=== PATIENT | female | born 1990 | race Caucasian/White ===

== ENCOUNTER 2016-08-27 11:47 | Inpatient (IN) | payer MEDICAID ==
[~2016-08-27] VITALS: Ht 152.4 cm; Wt 76.7 kg
[2016-08-27] VITALS (24 sets, daily range): BP systolic 119–168; BP diastolic 65–93
[~2016-08-27 11:47] MED LIST: ACET-789 PO; ACHD5005 PO; ALBU17AE3; ALBU17AE3 IH; ALBU8.5H2 IH; ALBU8.5H4 IH; ALBUTEROL INHALER INH; AMPICILLIN 2000 MG INJECTION (IM/IV) ONE; BCP; CEFP500T4 PO; CEPH-507 PO; CLC500CT PO; D5 LR IV SOLUTION 1,000 ML IV ONE; DCS100C PO; DESV50TA PO; HYDR-3812 PO; HYDR-757 PO; HYDR1TAB PO; IBP600T1 PO; IBUP-1773 PO; LIDOCAINE/EPI 1%-1:200,000 (XYLOCAINE) 30 ML VIAL ONE; METH4TAB PO; METR500T PO; MINERAL OIL CONCENTRATE 99.9% 15 ML UDC ONE; MULT-241 PO; NAPR-243 PO; NITR-65 PO; NITR100C3 PO; NS (IVPB) 50 ML ONE; OMEP20CA6; ONDAN4ODT PO; OXYTOCIN/NORMAL SALINE 500 ML IV ONE; PEDI1TAB36 PO; PRD20T PO; PRILOSEC; QTP100T PO; TRAM50TA2 PO; TRM50T PO; [UNRECOGNIZED DRUG - OTHER] PO; [UNRECOGNIZED DRUG - REMARK]; [UNRECOGNIZED DRUG - REMARK]
[2016-08-27] MEDS ORDERED: D5 LR IV SOLUTION 1,000 ML IV SCH (11:53)
[2016-08-27] MEDS ORDERED: MINERAL OIL CONCENTRATE 99.9% 15 ML UDC TOP PRN (12:00)
[2016-08-27] MEDS ORDERED: ceFAZolin 2 GM/50 ML NS 50 ML IV ONE (12:00)
[2016-08-27 12:15] LABS: BASOPHILS % (AUTO) 0 % (0-10); EOSINOPHILS # (AUTO) 0.1 10^3/uL (0.0-0.3); EOSINOPHILS % (AUTO) 1 % (0-10); LYMPHOCYTES % (AUTO) 18 % (12-44); MEAN CORPUSCULAR HEMOGLOBIN 29 PG (25-34); MEAN CORPUSCULAR HGB CONC 33 G/DL (32-36); MEAN CORPUSCULAR VOLUME 89 FL (80-99); MEAN PLATELET VOLUME 11.5 FL (7.4-10.4); MONOCYTES % (AUTO) 6 % (0-12); NEUTROPHILS # (AUTO) 12.2 X 10^3 (1.8-7.8); NEUTROPHILS % (AUTO) 75 % (42-75); PLATELET COUNT 252 10^3/uL (130-400); RED BLOOD COUNT 4.34 10^6/uL (4.35-5.85); RED CELL DISTRIBUTION WIDTH 13.5 % (10.0-14.5); WHITE BLOOD COUNT 16.3 10^3/uL (4.3-11.0)
[2016-08-27 12:24] LABS: BILIRUBIN,URINE NEGATIVE (NEGATIVE); KETONES,URINE 2+ (NEGATIVE); LEUKOCYTE ESTERASE ,URINE 1+ (NEGATIVE); NITRITE,URINE NEGATIVE (NEGATIVE); PH,URINE 7 (5-9); PROTEIN,URINE NEGATIVE (NEGATIVE); UROBILINOGEN,URINE NORMAL (NORMAL)
[2016-08-27 12:48] LABS: WBC,URINE 0-2 /HPF
[2016-08-27 13:03] LABS: BAND NEUTROPHILS 1 %; BASOPHILS % (MANUAL) 0 %; EOSINOPHILS % (MANUAL) 1 %; LYMPHOCYTES % (MANUAL) 24 %; NEUTROPHILS % (MANUAL) 71 %; REACTIVE LYMPHOCYTES 1 %
[2016-08-27] MEDS ORDERED: CATHETER FLUSH 10 ML SYR IV SCH ×2 (14:00→22:00)
[2016-08-27] MEDS ORDERED: SUFENTA 0.6MCG/ML BUPIVA 0.125 100 ML ONE (14:31)
[2016-08-27] MEDS ORDERED: BUPIVACAINE 0.25% 30 ML (SENSORCAINE) VIAL ONE (15:02)
[2016-08-27] MEDS ORDERED: fentaNYL INJECTION 100 MCG/2 ML AMP ONE (15:02)
[2016-08-27] MEDS ORDERED: LIDOCAINE PF 2% 10 ML (XYLOCAINE) AMP ONE (15:02)
[2016-08-27] MEDS ORDERED: BUPIVACAINE 0.25% 30 ML (SENSORCAINE) VIAL INJ ONE (16:30)
[2016-08-27] MEDS ORDERED: LIDOCAINE PF 2% 10 ML (XYLOCAINE) AMP INJ ONE (16:30)
[2016-08-27] MEDS ORDERED: LACTATED RINGERS 1,000 ML IV ONE (16:30)
[2016-08-27] MEDS ORDERED: fentaNYL INJECTION 100 MCG/2 ML AMP INJ ONE (16:30)
[2016-08-27] MEDS ORDERED: NALOXONE 0.4 MG/ML 1 ML (NARCAN) VIAL IV PRN (16:30)
[2016-08-27] MEDS ORDERED: diphenhydrAMINE 50 MG/ML INJ (BENADRYL) IV PRN (16:30)
[2016-08-27] MEDS ORDERED: EPIDURAL (SUFENTA 0.6MCG/ML BUPIVA 0.125%) 100 ML BAG EPI SCH (16:30)
[2016-08-27] MEDS ORDERED: ONDANSETRON 4 MG/2 ML (SDV) Z0FRAN IV PRN (16:30)
[2016-08-27] MEDS ORDERED: CATHETER FLUSH 10 ML SYR IV PRN (16:30)
[2016-08-27] MEDS ORDERED: ceFAZolin INJECTION 1,000 MG in NS (IVPB) 50 ML IV SCH (18:00)
[2016-08-27] MEDS ORDERED: OXYTOCIN/NORMAL SALINE 500 ML IV SCH (19:04)
--- NOTE | 2016-08-27 19:10 | OB Labor & Delivery Record ---
Vag Delivery Note Vag Delivery Note Date of Delivery: 08/27/16 Preoperative Diagnosis: Jesi Navarrete is a 26 /Para 9 / 4, Gestational Age 38 in active labor, GBS unknown Postoperative Diagnosis: Same Surgeon: AC GUTIERREZ Anesthesia: epidural Delivery Type: vaginal Findings: Viable male , apgars 9/9, weight 6#13oz Lacerations: Intact placenta with 3 vessel cord. No nuchal cord, body cord or shoulder dystocia Estimated Blood Loss: 150 ml Complications: None Condition: Stable Description of Procedure: The patient is a 26 /Para 9 / 4,Gestational Age 38 in active labor, GBS unknown. She was admitted and informed consent was obtained. Her labor course was remarkable for GBS unknown. PCN allergic. Received Ancef x 2 doses. AROM at 1715 (7 cm). She progressed to complete dilatation and began to push. She was then set up for delivery. The infant's head was delivered atraumatically in the RAMY position. The shoulders and remainder of the 's body were then delivered without difficulty. Upon delivery, the head was held below the level of the perineum and the mouth and nares were bulb suctioned. The cord was doubly clamped and cut and the infant was handed off to the pediatric staff. An intact placenta with 3-vessel cord delivered via Karissa and there was found to be minimal bleeding.~ Vigorous fundal massage was performed and the fundus was found to be firm. IV oxytocin was given. Examination of the vagina and perineum revealed no lacerations. Following the delivery, sponge, instrument and needle counts were correct x 2. Mom and baby were both in stable condition in the labor suite. Vitals - Labs Vital Signs - I&O Vital Signs Date Time Temp Pulse Resp B/P (MAP) Pulse Ox O2 Delivery O2 Flow Rate FiO2 08/27/16 18:00 115 18 98 Room Air 08/27/16 17:45 110 18 98 Room Air 08/27/16 17:30 115 18 98 Room Air 08/27/16 17:15 112 18 168/87 98 Room Air 08/27/16 17:00 111 18 163/91 98 Room Air 08/27/16 16:45 103 18 133/73 98 Room Air 08/27/16 16:30 104 18 131/90 99 Room Air 08/27/16 16:20 105 18 157/93 98 Room Air 08/27/16 16:15 108 18 135/77 98 Room Air 08/27/16 15:55 99 18 139/86 99 Room Air 08/27/16 15:50 100 18 139/86 98 Room Air 08/27/16 15:45 105 18 136/79 97 Room Air 08/27/16 15:40 103 18 151/84 98 Room Air 08/27/16 15:35 96 18 136/65 98 Room Air 08/27/16 15:30 102 18 147/72 Room Air 08/27/16 15:00 96 18 139/85 Room Air 08/27/16 14:30 94 18 128/78 Room Air 08/27/16 14:00 98 18 119/70 Room Air 08/27/16 13:30 93 18 137/75 Room Air 08/27/16 13:00 93 18 128/82 98 Room Air 08/27/16 12:30 18 Room Air 08/27/16 12:00 102 18 151/77 98 Room Air 08/27/16 12:00 93 18 130/65 98 Room Air Labs Laboratory Tests 08/27/16 11:50: White Blood Count 16.3H, Red Blood Count 4.34L, Hemoglobin 12.7, Hematocrit 39, Mean Corpuscular Volume 89, Mean Corpuscular Hemoglobin 29, Mean Corpuscular Hemoglobin Concent 33, Red Cell Distribution Width 13.5, Platelet Count 252, Mean Platelet Volume 11.5H, Neutrophils (%) (Auto) 75, Lymphocytes (%) (Auto) 18 , Monocytes (%) (Auto) 6, Eosinophils (%) (Auto) 1, Basophils (%) (Auto) 0, Neutrophils # (Auto) 12.2H, Lymphocytes # (Auto) 3.0, Monocytes # (Auto) 1.0, Eosinophils # (Auto) 0.1, Basophils # (Auto) 0.0, Neutrophils % (Manual) 71, Lymphocytes % (Manual) 24, Monocytes % (Manual) 2, Eosinophils % (Manual) 1, Basophils % (Manual) 0, Band Neutrophils 1, Reactive Lymphocytes 1, Blood Morphology Comment NORMAL, Urine Color YELLOW, Urine Clarity CLEAR, Urine pH 7, Urine Specific [place] 1.010L, Urine Protein NEGATIVE, Urine Glucose (UA) NEGATIVE, Urine Ketones 2+H, Urine Nitrite NEGATIVE, Urine Bilirubin NEGATIVE, Urine Urobilinogen NORMAL, Urine Leukocyte Esterase 1+H, Urine RBC (Auto) 1+H, Urine RBC RARE, Urine WBC 0-2, Urine Crystals PRESENTH, Urine Amorphous Sediment FEW MAXX PHOSPHATEH, Urine Bacteria TRACE, Urine Casts NONE, Urine Mucus MODERATEH, Urine Culture Indicated NO AC GUTIERREZ DO Aug 27, 2016 19:10
[2016-08-27] MEDS ORDERED: IBUP-1773 PO (19:11)
--- NOTE | 2016-08-27 19:12 | Discharge Inst-Women's Service ---
Discharge Inst-Women's Serv Depart Medication/Instructions New, Converted or Re-Newed RX: Transmitted to Pharmacy Final Diagnosis Labor GBS unknown Vaginal delivery Epidural Consults/Follow Up Additional Follow Up: Yes (6 weeks for pp exam) Activity Activity: Activity as Tolerated Driving Instructions: You May Drive NO SMOKING: NO SMOKING Nothing Inside Vagina: No Douching, No [place], No Tampons Diet Discharge Diet: No Restrictions Symptoms to Report to : Bleeding Excessive, Pain Increased, Fever Over 101 Degrees F, Vaginal Bleeding Increase, Vaginal Discharge Foul For Any Problems or Questions: Contact Your Physician Skin/Wound Care Bathing Instructions: AC Parson DO Aug 27, 2016 19:12
[2016-08-27] MEDS ORDERED: MEASLES,MUMPS,RUBELLA 1 EA INJ SQ ONE (19:15)
[2016-08-27] MEDS ORDERED: TETANUS,DIPTH,PERTUSS P/F (BOOSTRIX) 0.5 ML VIAL IM ONE (19:15)
[2016-08-27] MEDS ORDERED: BENZOCAINE/MENTHOL (DERMOPLAST) 56 ML CAN TP PRN (19:15)
[2016-08-27] MEDS ORDERED: WITCH HAZEL(TUCKS) 40 EA JAR TOP PRN (19:15)
[2016-08-27] MEDS: IBUPROFEN 600 MG (MOTRIN) TAB PO SCH (20:14)
[2016-08-27] MEDS: DOCUSATE SODIUM 100 MG (COLACE) CAP PO SCH (21:00)
[2016-08-28 00:07] VITALS: BP 147/97
[2016-08-28] MEDS: IBUPROFEN 600 MG (MOTRIN) TAB PO SCH ×4 (02:13→23:24)
[2016-08-28 04:00] VITALS: BP 126/81
[2016-08-28 06:20] LABS: BASOPHILS % (AUTO) 0 % (0-10); EOSINOPHILS # (AUTO) 0.2 10^3/uL (0.0-0.3); EOSINOPHILS % (AUTO) 1 % (0-10); LYMPHOCYTES # (AUTO) 3.7 X 10^3 (1.0-4.0); LYMPHOCYTES % (AUTO) 22 % (12-44); MEAN CORPUSCULAR HEMOGLOBIN 30 PG (25-34); MEAN CORPUSCULAR HGB CONC 33 G/DL (32-36); MEAN CORPUSCULAR VOLUME 90 FL (80-99); MEAN PLATELET VOLUME 11.2 FL (7.4-10.4); MONOCYTES # (AUTO) 1.2 X 10^3 (0.0-1.0); MONOCYTES % (AUTO) 7 % (0-12); NEUTROPHILS # (AUTO) 11.3 X 10^3 (1.8-7.8); NEUTROPHILS % (AUTO) 69 % (42-75); PLATELET COUNT 209 10^3/uL (130-400); RED BLOOD COUNT 3.61 10^6/uL (4.35-5.85); RED CELL DISTRIBUTION WIDTH 13.4 % (10.0-14.5); WHITE BLOOD COUNT 16.3 10^3/uL (4.3-11.0)
[2016-08-28] MEDS: PRENATAL VITAMIN 1 EA TAB PO SCH (06:23)
[2016-08-28] MEDS: FERROUS SULF 325 MG (IRON) TAB PO SCH ×2 (06:23→20:20)
--- NOTE | 2016-08-28 07:38 | Postpartum Progress Note ---
Note Note Day # 1 s/p Subjective: Patient is without complaints. Ambulating, voiding. Tolerating a regular diet without nausea or vomiting. Normal lochia. Pain is well controlled with oral antiinflammatories. Objective: Laboratory Tests Test 08/27/16 11:50 08/28/16 06:10 Range/Units White Blood Count 16.3 H 16.3 H 4.3-11.0 10^3/uL Red Blood Count 4.34 L 3.61 L 4.35-5.85 10^6/uL Hemoglobin 12.7 10.7 L 11.5-16.0 G/DL Hematocrit 39 32 L 35-52 % Mean Corpuscular Volume 89 90 80-99 FL Mean Corpuscular Hemoglobin 29 30 25-34 PG Mean Corpuscular Hemoglobin Concent 33 33 32-36 G/DL Red Cell Distribution Width 13.5 13.4 10.0-14.5 % Platelet Count 252 209 130-400 10^3/uL Mean Platelet Volume 11.5 H 11.2 H 7.4-10.4 FL Neutrophils (%) (Auto) 75 69 42-75 % Lymphocytes (%) (Auto) 18 22 12-44 % Monocytes (%) (Auto) 6 7 0-12 % Eosinophils (%) (Auto) 1 1 0-10 % Basophils (%) (Auto) 0 0 0-10 % Neutrophils # (Auto) 12.2 H 11.3 H 1.8-7.8 X 10^3 Lymphocytes # (Auto) 3.0 3.7 1.0-4.0 X 10^3 Monocytes # (Auto) 1.0 1.2 H 0.0-1.0 X 10^3 Eosinophils # (Auto) 0.1 0.2 0.0-0.3 10^3/uL Basophils # (Auto) 0.0 0.0 0.0-0.1 10^3/uL Neutrophils % (Manual) 71 % Lymphocytes % (Manual) 24 % Monocytes % (Manual) 2 % Eosinophils % (Manual) 1 % Basophils % (Manual) 0 % Band Neutrophils 1 % Reactive Lymphocytes 1 % Blood Morphology Comment NORMAL Urine Color YELLOW Urine Clarity CLEAR Urine pH 7 5-9 Urine Specific [place] 1.010 L 1.016-1.022 Urine Protein NEGATIVE NEGATIVE Urine Glucose (UA) NEGATIVE NEGATIVE Urine Ketones 2+ H NEGATIVE Urine Nitrite NEGATIVE NEGATIVE Urine Bilirubin NEGATIVE NEGATIVE Urine Urobilinogen NORMAL NORMAL MG/DL Urine Leukocyte Esterase 1+ H NEGATIVE Urine RBC (Auto) 1+ H NEGATIVE Urine RBC RARE /HPF Urine WBC 0-2 /HPF Urine Crystals PRESENT H /LPF Urine Amorphous Sediment FEW MAXX PHOSPHATE H /LPF Urine Bacteria TRACE /HPF Urine Casts NONE /LPF Urine Mucus MODERATE H /LPF Urine Culture Indicated NO Vital Sign - Last 12Hours 08/27/16 08/27/16 08/27/16 08/27/16 20:07 20:14 20:23 21:02 Temp 97.0 Pulse 105 93 109 88 Resp 18 18 18 18 B/P (MAP) 161/85 150/69 130/77 125/80 Pulse Ox 96 O2 Delivery Room Air Room Air Room Air Room Air 08/28/16 08/28/16 00:07 04:00 Temp 98.6 97.0 Pulse 95 76 Resp 17 16 B/P (MAP) 147/97 126/81 Pulse Ox 98 99 O2 Delivery Room Air Room Air Intake and Output 08/28/16 00:00 Intake Total 1550 ml Balance 1550 ml Physical Exam: General - Alert and oriented, no apparent distress Abdomen - Soft, appropriately tender to palpation, non-distended, fundus firm at umbilicus Extremities - no edema, negative Jeremie's bilaterally Assessment: 1. post- day # , status post spontaneous vaginal delivery. Recovering well, hemodynamically stable Plan: Routine care. Encourage breast feeding. Encourage ambulation. Ferrous sulfate supplementation. Plan for discharge tomorrow Vitals - Labs Vital Signs - I&O Vital Signs Date Time Temp Pulse Resp B/P (MAP) Pulse Ox O2 Delivery O2 Flow Rate FiO2 08/28/16 04:00 97.0 76 16 126/81 99 Room Air 08/28/16 00:07 98.6 95 17 147/97 98 Room Air 08/27/16 21:02 97.0 88 18 125/80 96 Room Air 08/27/16 20:23 109 18 130/77 Room Air 08/27/16 20:14 93 18 150/69 Room Air 08/27/16 20:07 105 18 161/85 Room Air 08/27/16 19:24 87 18 133/80 Room Air 08/27/16 19:05 93 18 145/82 Room Air 08/27/16 18:45 123 18 99 Room Air 08/27/16 18:30 124 18 98 Room Air 08/27/16 18:15 131 18 98 Room Air 08/27/16 18:00 115 18 98 Room Air 08/27/16 17:45 110 18 98 Room Air 08/27/16 17:30 115 18 98 Room Air 08/27/16 17:15 112 18 168/87 98 Room Air 08/27/16 17:00 111 18 163/91 98 Room Air 08/27/16 16:45 103 18 133/73 98 Room Air 08/27/16 16:30 104 18 131/90 99 Room Air 08/27/16 16:20 105 18 157/93 98 Room Air 08/27/16 16:15 108 18 135/77 98 Room Air 08/27/16 15:55 99 18 139/86 99 Room Air 08/27/16 15:50 100 18 139/86 98 Room Air 08/27/16 15:45 105 18 136/79 97 Room Air 08/27/16 15:40 103 18 151/84 98 Room Air 08/27/16 15:35 96 18 136/65 98 Room Air 08/27/16 15:30 102 18 147/72 Room Air 08/27/16 15:00 96 18 139/85 Room Air 08/27/16 14:30 94 18 128/78 Room Air 08/27/16 14:00 98 18 119/70 Room Air 08/27/16 13:30 93 18 137/75 Room Air 08/27/16 13:00 93 18 128/82 98 Room Air 08/27/16 12:30 18 Room Air 08/27/16 12:00 102 18 151/77 98 Room Air 08/27/16 12:00 93 18 130/65 98 Room Air I & O 08/28/16 07:00 Intake Total 2350 ml Balance 2350 ml Labs Laboratory Tests 08/27/16 11:50: White Blood Count 16.3H, Red Blood Count 4.34L, Hemoglobin 12.7, Hematocrit 39, Mean Corpuscular Volume 89, Mean Corpuscular Hemoglobin 29, Mean Corpuscular Hemoglobin Concent 33, Red Cell Distribution Width 13.5, Platelet Count 252, Mean Platelet Volume 11.5H, Neutrophils (%) (Auto) 75, Lymphocytes (%) (Auto) 18 , Monocytes (%) (Auto) 6, Eosinophils (%) (Auto) 1, Basophils (%) (Auto) 0, Neutrophils # (Auto) 12.2H, Lymphocytes # (Auto) 3.0, Monocytes # (Auto) 1.0, Eosinophils # (Auto) 0.1, Basophils # (Auto) 0.0, Neutrophils % (Manual) 71, Lymphocytes % (Manual) 24, Monocytes % (Manual) 2, Eosinophils % (Manual) 1, Basophils % (Manual) 0, Band Neutrophils 1, Reactive Lymphocytes 1, Blood Morphology Comment NORMAL, Urine Color YELLOW, Urine Clarity CLEAR, Urine pH 7, Urine Specific [place] 1.010L, Urine Protein NEGATIVE, Urine Glucose (UA) NEGATIVE, Urine Ketones 2+H, Urine Nitrite NEGATIVE, Urine Bilirubin NEGATIVE, Urine Urobilinogen NORMAL, Urine Leukocyte Esterase 1+H, Urine RBC (Auto) 1+H, Urine RBC RARE, Urine WBC 0-2, Urine Crystals PRESENTH, Urine Amorphous Sediment FEW MAXX PHOSPHATEH, Urine Bacteria TRACE, Urine Casts NONE, Urine Mucus MODERATEH, Urine Culture Indicated NO 08/28/16 06:10: White Blood Count 16.3H, Red Blood Count 3.61L, Hemoglobin 10.7L, Hematocrit 32L , Mean Corpuscular Volume 90, Mean Corpuscular Hemoglobin 30, Mean Corpuscular Hemoglobin Concent 33, Red Cell Distribution Width 13.4, Platelet Count 209, Mean Platelet Volume 11.2H, Neutrophils (%) (Auto) 69, Lymphocytes (%) (Auto) 22 , Monocytes (%) (Auto) 7, Eosinophils (%) (Auto) 1, Basophils (%) (Auto) 0, Neutrophils # (Auto) 11.3H, Lymphocytes # (Auto) 3.7, Monocytes # (Auto) 1.2H, Eosinophils # (Auto) 0.2, Basophils # (Auto) 0.0 AC GUTIERREZ DO Aug 28, 2016 07:38
[2016-08-28 08:00] VITALS: BP 122/97
[2016-08-28] MEDS: DOCUSATE SODIUM 100 MG (COLACE) CAP PO SCH ×2 (08:37→20:52)
[2016-08-28 12:00] VITALS: BP 137/77
[2016-08-28] MEDS: HYDROcodone/APAP 5 MG/325 MG (LORTAB) TAB PO PRN ×2 (14:04→20:52)
--- NOTE | 2016-08-28 14:43 | Anesthesia-Regional Post-Op ---
Regional Patient Condition Mental Status: Alert, Oriented x3 Circulation: Same as Pre-Op Headache: Absent Sensation: Full Recovery Motor Block: Absent Post Op Complications Complications None Follow Up Care/Instructions Patient Instructions None needed. Anesthesia/Patient Condition Patient is doing well, no complaints, stable vital signs, no apparent adverse anesthesia problems. No complications reported per nursing. AJITH MORRISON CRNA Aug 28, 2016 14:43
[2016-08-28 20:15] VITALS: BP 129/88
[2016-08-29] MEDS: HYDROcodone/APAP 5 MG/325 MG (LORTAB) TAB PO PRN (00:55)
[2016-08-29 01:33] VITALS: BP 129/78
[2016-08-29] MEDS: IBUPROFEN 600 MG (MOTRIN) TAB PO SCH (05:36)
[2016-08-29 08:15] VITALS: BP 125/91
--- NOTE | 2016-08-29 08:29 | Postpartum Progress Note ---
Note Note Day # 2 Subjective: Patient is without complaints. Ambulating, voiding. Tolerating a regular diet without nausea or vomiting. Normal lochia. Pain is well controlled with oral pain medications. Breast feeding. Objective: VS - Last 72 Hours, by Label 08/27/16 08/27/16 08/27/16 08/27/16 12:00 12:00 12:30 13:00 Pulse 93 102 93 Resp 18 18 18 18 B/P (MAP) 130/65 151/77 128/82 Pulse Ox 98 98 98 O2 Delivery Room Air Room Air Room Air Room Air 08/27/16 08/27/16 08/27/16 08/27/16 13:30 14:00 14:30 15:00 Pulse 93 98 94 96 Resp 18 18 18 18 B/P (MAP) 137/75 119/70 128/78 139/85 O2 Delivery Room Air Room Air Room Air Room Air 08/27/16 08/27/16 08/27/16 08/27/16 15:30 15:35 15:40 15:45 Pulse 102 96 103 105 Resp 18 18 18 18 B/P (MAP) 147/72 136/65 151/84 136/79 Pulse Ox 98 98 97 O2 Delivery Room Air Room Air Room Air Room Air 08/27/16 08/27/16 08/27/16 08/27/16 15:50 15:55 16:15 16:20 Pulse 100 99 108 105 Resp 18 18 18 18 B/P (MAP) 139/86 139/86 135/77 157/93 Pulse Ox 98 99 98 98 O2 Delivery Room Air Room Air Room Air Room Air 08/27/16 08/27/16 08/27/16 08/27/16 16:30 16:45 17:00 17:15 Pulse 104 103 111 112 Resp 18 18 18 18 B/P (MAP) 131/90 133/73 163/91 168/87 Pulse Ox 99 98 98 98 O2 Delivery Room Air Room Air Room Air Room Air 08/27/16 08/27/16 08/27/16 08/27/16 17:30 17:45 18:00 18:15 Pulse 115 110 115 131 Resp 18 18 18 18 B/P (MAP) Pulse Ox 98 98 98 98 O2 Delivery Room Air Room Air Room Air Room Air 08/27/16 08/27/16 08/27/16 08/27/16 18:30 18:45 19:05 19:24 Pulse 124 123 93 87 Resp 18 18 18 18 B/P (MAP) 145/82 133/80 Pulse Ox 98 99 O2 Delivery Room Air Room Air Room Air Room Air 08/27/16 08/27/16 08/27/16 08/27/16 20:07 20:14 20:23 21:02 Temp 97.0 Pulse 105 93 109 88 Resp 18 18 18 18 B/P (MAP) 161/85 150/69 130/77 125/80 Pulse Ox 96 O2 Delivery Room Air Room Air Room Air Room Air 08/28/16 08/28/16 08/28/16 08/28/16 00:07 04:00 08:00 12:00 Temp 98.6 97.0 96.8 97.4 Pulse 95 76 90 93 Resp 17 16 18 18 B/P (MAP) 147/97 126/81 122/97 137/77 Pulse Ox 98 99 96 94 O2 Delivery Room Air Room Air Room Air 08/28/16 08/28/16 08/29/16 16:00 20:15 01:33 Temp 98.9 97.3 96.7 Pulse 91 80 Resp 18 18 B/P (MAP) 129/88 129/78 Pulse Ox 97 98 O2 Delivery Room Air Room Air Physical Exam: General - Alert and oriented, no apparent distress Abdomen - Soft, appropriately tender to palpation, non-distended, fundus firm at umbilicus Extremities - no edema, negative Jeremie's bilaterally no new labs Assessment: 26 y/o post- day # 2, status post spontaneous vaginal delivery. Recovering well, hemodynamically stable Normal BPs for last 24 hours, were elevated mild range PPD#0-1 Plan: Routine care. No si/sx pre-eclampsia, BPs normalized over last 24 hours Encourage breast feeding. Encourage ambulation. Plan for discharge today, f/u with Dr. Milian as instructed per her discharge instructions Vitals - Labs Vital Signs - I&O Vital Signs Date Time Temp Pulse Resp B/P (MAP) Pulse Ox O2 Delivery O2 Flow Rate FiO2 08/29/16 01:33 96.7 80 18 129/78 98 Room Air 08/28/16 20:15 97.3 91 18 129/88 97 Room Air 08/28/16 16:00 98.9 08/28/16 12:00 97.4 93 18 137/77 94 Room Air I & O 08/29/16 07:00 Intake Total 560 ml Balance 560 ml ASHER LEA MD Aug 29, 2016 08:29
[2016-08-29] MEDS: FERROUS SULF 325 MG (IRON) TAB PO SCH (08:36)
[2016-08-29] MEDS: PRENATAL VITAMIN 1 EA TAB PO SCH (08:37)
[2016-08-29] MEDS: DOCUSATE SODIUM 100 MG (COLACE) CAP PO SCH (08:37)
[2016-08-29] MEDS ORDERED: TETANUS,DIPTH,PERTUSS P/F (BOOSTRIX) 0.5 ML VIAL IM ONE (10:34)
== END 2016-08-29 11:50 | disposition home or self-care (01) | DRG 775 ==
LOC: LDRP 11:47
PROVIDERS: ADMIT Obstetrics & Gynecology; ATTEND Obstetrics & Gynecology
PROC: 10E0XZZ Delivery of Products of Conception, External Approach (ICD-10-PCS; principal; 2016-08-27)
DX: O80 Encounter for full-term uncomplicated delivery (principal); Z37.0 Single live birth; Z3A.38 38 weeks gestation of pregnancy; Z23 Encounter for immunization
CPT/HCPCS: 36415; 81000; 85007; 85025; 85027; 86850; 86900; 86901; 90715

== ENCOUNTER 2016-11-19 20:31 | Emergency (ER) | payer MEDICAID ==
[~2016-11-19] VITALS: Ht 152.4 cm; Wt 76.7 kg
[~2016-11-19 20:31] MED LIST changes: -AMPICILLIN 2000 MG INJECTION (IM/IV) ONE; -D5 LR IV SOLUTION 1,000 ML IV ONE; -LIDOCAINE/EPI 1%-1:200,000 (XYLOCAINE) 30 ML VIAL ONE; -MINERAL OIL CONCENTRATE 99.9% 15 ML UDC ONE; -NS (IVPB) 50 ML ONE; -OXYTOCIN/NORMAL SALINE 500 ML IV ONE
--- NOTE | 2016-11-19 20:36 | ED Abdominal Pain ---
General Stated Complaint: ABD PAIN Source of Information: Patient Exam Limitations: No Limitations History of Present Illness Time Seen By Provider: 20:34 Initial Comments To ER per EMS from home with reports of diffuse abdominal pain worse in the right lower quadrant. This began this morning. Upon awakening she noticed diffuse abdominal pain worse in the right lower quadrants of the location of the pain has not changed throughout the day. However, it has become much more intense over the past few hours and associated with nausea and vomiting. No fevers or chills. She is writhing upon arrival. Timing/Duration: 12-24 Hours Severity/Quality: Moderate Radiation: No Radiation Activities at Onset: None Associated Symptoms: Nausea/Vomiting Allergies and Home Medications Allergies Coded Allergies: Penicillins (Verified Allergy, Intermediate, RASH, 06/05/10) adhesive (Verified Allergy, Mild, 09/27/08) peanut (Unverified Allergy, Mild, HIVES, 03/11/15) FROM UNCODED ALLERGIES Home Medications Ibuprofen 600 Mg Tablet, 600 MG PO Q6H PRN for PAIN, #40 Prescribed by: AC GUTIERREZ on 08/27/161910 [Albuterol Inhaler] , 90 MCG INH PRN, (Reported) Review of Systems Constitutional: see HPI EENTM: No Symptoms Reported Respiratory: No Symptoms Reported Cardiovascular: No Symptoms Reported Gastrointestinal: See HPI, Abdominal Pain, Nausea Genitourinary: No Symptoms Reported Musculoskeletal: no symptoms reported Skin: no symptoms reported Psychiatric/Neurological: No Symptoms Reported Endocrine: No Symptoms Reported Hematologic/Lymphatic: No Symptoms Reported Past Szjgkqw-Cqpaaf-Gcvwoe Hx Patient Social History Type Used: Cigarettes Former Smoker/When Quit: Jan 31, 2014 Recent Hopitalizations: Yes Immunizations Up To Date Tetanus Booster (TDap): Less than 5yrs PED Vaccines UTD: Yes Seasonal Allergies Seasonal Allergies: No Surgeries HX Surgeries: Yes (CYST REMOVAL LEFT BREAST/HAND) Surgeries: Breast Respiratory Hx Respiratory Disorders: Yes Respiratory Disorders: Asthma Cardiovascular Hx Cardiac Disorders: No Neurological Hx Neurological Disorders: No Reproductive System Hx Reproductive Disorders: No Sexually Transmitted Disease: No HIV/AIDS: No Genitourinary Hx Genitourinary Disorders: No Gastrointestinal Hx Gastrointestinal Disorders: No Musculoskeletal Hx Musculoskeletal Disorders: No Endocrine Hx Endocrine Disorders: No HEENT HX ENT Disorders: No Cancer Hx Cancer: No Cancer: Cervical Psychosocial Hx Psychiatric Problems: Yes Behavioral Health Disorders: Anxiety, Depression Integumentary HX Skin/Integumentary Disorder: No Blood Transfusions Hx Blood Disorders: No Adverse Reaction to a Blood Tr: No Family Medical History Family Medial History: Family history: Diabetes mellitus 19 FATHER, Onset:40's - 50 Hearing loss 19 FATHER G8 BROTHER No Family History of: Abdominal aortic aneurysm Gretna's disease Alcoholism Aphasia Cancer Cancer of colon Cataract Chest pain Congenital heart disease Congestive heart failure Cystic fibrosis Dementia Dysphagia Family history: Allergy Family history: Alzheimer's disease Family history: Arthritis Family history: Asthma Family history: Breast disease Family history: Cardiovascular disease Family history: Coronary thrombosis Family history: Gastrointestinal disease Family history: Glaucoma Family history: Hypertension Family history: Osteoporosis Family history: Thyroid disorder Headache Heart disease Hereditary disease History of - anemia History of - disorder History of - respiratory disease History of drug abuse Human immunodeficiency virus (HIV) seropositivity Hypercholesterolemia Infertile Kidney disease Malignant neoplasm of lung Myocardial infarction Parkinson's disease Prostate cancer Psychotic disorder Seizure disorder Stroke Tuberculosis Visual impairment Physical Exam Vital Signs VS - Last 72 Hours, by Label 11/19/16 20:31 Temp 99.1 Pulse 77 Resp 22 B/P (MAP) 134/77 Pulse Ox 98 O2 Delivery Room Air Capillary Refill : General Appearance: WD/WN, moderate distress, other (writhing and moaning) HEENT: PERRL/EOMI, normal ENT inspection Neck: non-tender, full range of motion Respiratory: no respiratory distress, no accessory muscle use Cardiovascular: regular rate, rhythm, no murmur Gastrointestinal: normal bowel sounds, soft, tenderness Extremities: normal range of motion, non-tender Neurologic/Psychiatric: alert, normal mood/affect, oriented x 3 Skin: normal color, warm/dry Focused Exam Lactic Acid Level Laboratory Tests Test 11/19/16 21:45 Progress/Results/Core Measures Results/Orders Lab Results Laboratory Tests Test 11/19/16 20:31 11/19/16 20:54 11/19/16 21:45 Range/Units White Blood Count 20.5 H 4.3-11.0 10^3/uL Red Blood Count 4.49 4.35-5.85 10^6/uL Hemoglobin 13.0 11.5-16.0 G/DL Hematocrit 39 35-52 % Mean Corpuscular Volume 87 80-99 FL Mean Corpuscular Hemoglobin 29 25-34 PG Mean Corpuscular Hemoglobin Concent 33 32-36 G/DL Red Cell Distribution Width 13.7 10.0-14.5 % Platelet Count 295 130-400 10^3/uL Mean Platelet Volume 11.5 H 7.4-10.4 FL Neutrophils (%) (Auto) 80 H 42-75 % Lymphocytes (%) (Auto) 14 12-44 % Monocytes (%) (Auto) 6 0-12 % Eosinophils (%) (Auto) 1 0-10 % Basophils (%) (Auto) 0 0-10 % Neutrophils # (Auto) 16.3 H 1.8-7.8 X 10^3 Lymphocytes # (Auto) 2.9 1.0-4.0 X 10^3 Monocytes # (Auto) 1.1 H 0.0-1.0 X 10^3 Eosinophils # (Auto) 0.2 0.0-0.3 10^3/uL Basophils # (Auto) 0.0 0.0-0.1 10^3/uL Neutrophils % (Manual) 79 % Lymphocytes % (Manual) 21 % Monocytes % (Manual) 0 % Eosinophils % (Manual) 0 % Basophils % (Manual) 0 % Band Neutrophils 0 % Blood Morphology Comment NORMAL Sodium Level 140 135-145 MMOL/L Potassium Level 3.6 3.6-5.0 MMOL/L Chloride Level 109 H 98-107 MMOL/L Carbon Dioxide Level 19 L 21-32 MMOL/L Anion Gap 12 5-14 MMOL/L Blood Urea Nitrogen 7 7-18 MG/DL Creatinine 0.65 0.60-1.30 MG/DL Estimat Glomerular Filtration Rate > 60 BUN/Creatinine Ratio 11 Glucose Level 94 70-105 MG/DL Calcium Level 9.0 8.5-10.1 MG/DL Total Bilirubin 0.3 0.1-1.0 MG/DL Aspartate Amino Transf (AST/SGOT) 11 5-34 U/L Alanine Aminotransferase (ALT/SGPT) 13 0-55 U/L Alkaline Phosphatase 62 40-136 U/L Total Protein 6.9 6.4-8.2 GM/DL Albumin 4.2 3.2-4.5 GM/DL Amylase Level 103 25-125 U/L Lipase 19 8-78 U/L Serum Test, Qualitative NEGATIVE NEGATIVE Urine Color YELLOW Urine Clarity CLEAR Urine pH 6 5-9 Urine Specific Burke 1.025 H 1.016-1.022 Urine Protein 2+ H NEGATIVE Urine Glucose (UA) NEGATIVE NEGATIVE Urine Ketones 4+ H NEGATIVE Urine Nitrite NEGATIVE NEGATIVE Urine Bilirubin NEGATIVE NEGATIVE Urine Urobilinogen NORMAL NORMAL MG/DL Urine Leukocyte Esterase 1+ H NEGATIVE Urine RBC (Auto) 1+ H NEGATIVE Urine RBC NONE /HPF Urine WBC 2-5 /HPF Urine Squamous Epithelial Cells 10-25 H /HPF Urine Crystals NONE /LPF Urine Bacteria FEW H /HPF Urine Casts NONE /LPF Urine Mucus LARGE H /LPF Urine Culture Indicated NO Urine Test NEGATIVE NEGATIVE Urine Opiates Screen NEGATIVE NEGATIVE Urine Oxycodone Screen NEGATIVE NEGATIVE Urine Methadone Screen NEGATIVE NEGATIVE Urine Propoxyphene Screen NEGATIVE NEGATIVE Urine Barbiturates Screen NEGATIVE NEGATIVE Ur Tricyclic Antidepressants Screen NEGATIVE NEGATIVE Urine Phencyclidine Screen NEGATIVE NEGATIVE Urine Amphetamines Screen NEGATIVE NEGATIVE Urine Methamphetamines Screen NEGATIVE NEGATIVE Urine Benzodiazepines Screen NEGATIVE NEGATIVE Urine Cocaine Screen NEGATIVE NEGATIVE Urine Cannabinoids Screen POSITIVE H NEGATIVE My Orders Orders - RICHARD FERGUSON EGG BREAKING MACHINE OPERATOR Cbc With Automated Diff (11/19/16 20:33) Comprehensive Metabolic Panel (11/19/16 20:33) Hcg,Qualitative Serum (11/19/16 20:33) Lipase (11/19/16 20:33) Amylase (11/19/16 20:33) Ua Culture If Indicated (11/19/16 20:33) Urine Bedside (11/19/16 20:33) Drug Screen Stat (Urine) (11/19/16 20:33) Saline Lock/Iv-Start (11/19/16 20:33) Fentanyl Injection (Sublimaze Injection (11/19/16 20:45) Ct Abdomen/Pelvis W (11/19/16 20:33) Iohexol Injection (Omnipaque 350 Mg/Ml 1 (11/19/16 20:45) Ns (Ivpb) (Sodium Chloride 0.9% Ivpb Bag (11/19/16 20:45) Manual Differential (11/19/16 20:31) Fentanyl Injection (Sublimaze Injection (11/19/16 21:00) Hcg,Qualitative Urine (11/19/16 20:55) Morphine Injection (Morphine Injection (11/19/16 21:15) Ua Culture If Indicated (11/19/16 21:15) Ketorolac Injection (Toradol Injection) (11/19/16 21:30) Fentanyl Injection (Sublimaze Injection (11/19/16 21:30) Ceftriaxone Injection (Rocephin Injectio (11/19/16 21:30) Blood Culture (11/19/16 21:23) Lactic Acid Analyzer (11/19/16 21:23) Hydromorphone Injection (Dilaudid Inject (11/19/16 22:15) Hydromorphone Injection (Dilaudid Inject (11/19/16 22:15) Medications Given in ED Current Medications Medications Dose Ordered Sig/Bobbi Route Start Time Stop Time Status Last Admin Dose Admin Ceftriaxone Sodium 1000 mg/ Sodium Chloride 50 ml @ 100 mls/hr ONCE ONCE IV 11/19/16 21:30 11/19/16 21:59 DC 11/19/16 21:46 100 MLS/HR Fentanyl Citrate 50 mcg ONCE ONCE IVP 11/19/16 21:00 11/19/16 21:01 DC 11/19/16 20:54 50 MCG Fentanyl Citrate 50 mcg ONCE ONCE IVP 11/19/16 21:30 11/19/16 21:31 DC 11/19/16 21:21 50 MCG Fentanyl Citrate 75 mcg ONCE ONCE IVP 11/19/16 20:45 11/19/16 20:46 DC 11/19/16 20:40 75 MCG Iohexol 100 ml ONCE ONCE IV 11/19/16 20:45 11/19/16 21:42 DC 11/19/16 21:09 100 ML Ketorolac Tromethamine 30 mg ONCE ONCE IVP 11/19/16 21:30 11/19/16 21:31 DC 11/19/16 21:22 30 MG Morphine Sulfate 4 mg ONCE ONCE IVP 11/19/16 21:15 11/19/16 21:16 DC 11/19/16 21:45 4 MG Sodium Chloride 100 ml ONCE ONCE IV 11/19/16 20:45 11/19/16 21:42 DC 11/19/16 21:09 80 ML Vital Signs/I&O Vital Sign - Last 12Hours 11/19/16 20:31 Temp 99.1 Pulse 77 Resp 22 B/P (MAP) 134/77 Pulse Ox 98 O2 Delivery Room Air Diagnostic Imaging Diagonstic Imaging: CT Comments NAME: BARBRATIM R [facility] REC#: [id number] PT STATUS: REG ER : 1990 PHYSICIAN: RICHARD FERGUSON APRN ADMIT DATE: 11/19/16/ER Draft Date of Exam:11/19/16 CT ABDOMEN/PELVIS W PROCEDURE: CT abdomen and pelvis with contrast. TECHNIQUE: Multiple contiguous axial images were obtained through the abdomen and pelvis after administration of intravenous contrast. INDICATION: Abdominal pain. COMPARISON: Prior examination from 06/10/07. FINDINGS: The lung bases are clear. The liver is normal in size. There is a non-specific low-density lesion just lateral to the gallbladder in the right lobe of the liver, measuring 1.5 cm. This appears to have some nodular enhancement. This is likely a cavernous hemangioma, however, it could be better evaluated with three-phase contrast-enhanced CT. The spleen is unremarkable. The pancreas and adrenal glands are unremarkable. Left kidney is normal. There is severe right hydronephrosis and hydroureter with some enhancement of the uroepithelium. This appears to be secondary to a 3.6 cm stone near the right UVJ. Superimposed pyelonephritis cannot be excluded. The aorta is nonaneurysmal. Bowel gas pattern is nonspecific. There is no free air. There is no ascites. IMPRESSION: 1. Severe right hydronephrosis and hydroureter secondary to a 3.6 mm stone near the right UVJ. There is enhancement of the uroepithelium which may reflect some superimposed pyelonephritis. Recommend clinical correlation. 2. There is a 1.5 cm low-density mass in the right lobe of the liver with questionable peripheral nodular enhancement. This is likely a cavernous hemangioma. This could be further characterized with three-phase contrast-enhanced CT. Dictated on workstation # [id number] Dict: 11/19/162131 Trans: 11/19/162139 [facility] [id number] Interpreted by: FREDA DÍAZ Electronically signed by: Departure Communication Progress Notes 2144-I did discuss the case with Dr. Maciel. Says he'll be going out of town tomorrow and given the leukocytosis and uncontrolled pain would recommend admission to a hospital with urology present in case stenting is required 2151-I discussed the case with Dr. Vitale who accepts the patient in transfer to [place]. Blood cultures are been obtained, urine culture has been collected. Rocephin has been given. Despite 125 g of fentanyl, 30 mg of Toradol, 4 mg morphine her pain is still reported as "intolerable". Dilaudid ordered. Impression Impression: Primary Impression: Pyelonephritis Additional Impression: Renal and ureteric calculus Disposition: S[facility]-TRM HOSP Condition: Stable Departure-Patient Inst. Referrals: [facility] RUEL[facility] DO (PCP/Family) Primary Care Physician RICHARD FERGUSON APRN Nov 19, 2016 20:36
--- OUTSIDE RECORDS SUMMARY | 2016-11-19 20:37 | XMS REPORT | Continuity of Care Document ---
Author Author [facility] Address Unknown Phone Unavailable Allergies Active Description Code Type Severity Reaction Onset Reported/Identified Relationship to Patient Clinical Status Yes adhesive [id number] Drug Allergy Mild N/A 09/27/2008 Yes Penicillins Drug Allergy 04/17/2009 Yes Penicillins Drug Allergy N/A N/A 04/17/2009 Yes Penicillins [id number] Drug Allergy Moderate RASH 06/05/2010 Yes PEANUT BUTTER PEANUT BUTTER Mild HIVES 03/30/2012 Yes peanut [id number] Drug Allergy Mild HIVES 03/11/2015 Medications Problems Date Dx Coded Attending Type Code Diagnosis Diagnosed By 12/20/2007 535.50 GASTRITIS UNSPEC 12/20/2007 [facility] RU[facility] DO 535.50 GASTRITIS UNSPEC 12/20/2007 535.50 GASTRITIS UNSPEC 12/20/2007 535.50 GASTRITIS UNSPEC 09/27/2008 Ot 530.81 09/27/2008 Ot 558.9 09/27/2008 Ot 599.0 09/27/2008 Ot 646.63 09/27/2008 Ot 646.93 04/17/2009 054.9 HERPES SIMPLEX, WITHOUT MENTION OF COMPLICATION 04/17/2009 727.42 GANGLION OF TENDON SHEATH 04/17/2009 [facility] RU[facility] DO 054.9 HERPES SIMPLEX, WITHOUT MENTION OF COMPLICATION 04/17/2009 [facility] RUELAS DO 727.42 GANGLION OF TENDON SHEATH 04/17/2009 054.9 HERPES SIMPLEX, WITHOUT MENTION OF COMPLICATION 04/17/2009 727.42 GANGLION OF TENDON SHEATH 04/17/2009 054.9 HERPES SIMPLEX, WITHOUT MENTION OF COMPLICATION 04/17/2009 727.42 GANGLION OF TENDON SHEATH 12/11/2009 558.9 GASTROENTERITIS NONINFECTIOUS 12/11/2009 [facility] RUEL[facility] DO 558.9 GASTROENTERITIS NONINFECTIOUS 12/11/2009 558.9 GASTROENTERITIS NONINFECTIOUS 12/11/2009 558.9 GASTROENTERITIS NONINFECTIOUS 12/18/2009 Ot 632 01/03/2010 296.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 01/03/2010 300.00 AN ANXIETY UNSPEC 01/03/2010 [facility] RU[facility] DO 296.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 01/03/2010 [facility] RU[facility] DO 300.00 AN ANXIETY UNSPEC 01/03/2010 296.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 01/03/2010 300.00 AN ANXIETY UNSPEC 01/03/2010 296.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 01/03/2010 300.00 AN ANXIETY UNSPEC 04/24/2010 Ot 620.2 04/24/2010 Ot 625.9 04/24/2010 Ot 646.83 04/27/2010 Ot 558.9 04/27/2010 Ot 648.93 04/27/2010 Ot 787.03 06/05/2010 Ot 632 10/16/2010 305.20 CANNABIS ABUSE 10/16/2010 [facility] RUEL[facility] DO 305.20 CANNABIS ABUSE 10/16/2010 305.20 CANNABIS ABUSE 10/16/2010 305.20 CANNABIS ABUSE 10/27/2010 296.33 MO DEPRESSIVE RECURRENT SEVERE W/O PSYCHOTIC BEHAVIOR 10/27/2010 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 10/27/2010 [facility] RUEL[facility] DO 296.33 MO DEPRESSIVE RECURRENT SEVERE W/O PSYCHOTIC BEHAVIOR 10/27/2010 [facility] RUELAS DO 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 10/27/2010 296.33 MO DEPRESSIVE RECURRENT SEVERE W/O PSYCHOTIC BEHAVIOR 10/27/2010 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 10/27/2010 296.33 MO DEPRESSIVE RECURRENT SEVERE W/O PSYCHOTIC BEHAVIOR 10/27/2010 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0 11/18/2011 Ot 346.90 11/18/2011 Ot 784.0 01/06/2012 Ot 845.00 01/06/2012 Ot 959.7 01/06/2012 Ot E000.8 01/06/2012 Ot E849.0 01/06/2012 Ot E928.9 03/09/2012 Ot 836.2 03/09/2012 Ot 959.7 03/09/2012 Ot E000.8 03/09/2012 Ot E849.0 03/09/2012 Ot E927.0 03/21/2012 Ot 784.0 03/30/2012 Ot 623.8 03/30/2012 Ot 626.8 04/26/2012 [facility] RUEL[facility] DO 465.9 UPPER RESPIRATORY INFECTION 04/26/2012 MER[facility] RUELAS DO 784.91 POSTNASAL DRIP 04/26/2012 [facility] RUELAS DO V25.01 GENERAL COUNSELING ON PRESCRIPTION OF ORAL CONTRACEPTIVES 04/26/2012 465.9 UPPER RESPIRATORY INFECTION 04/26/2012 784.91 POSTNASAL DRIP 04/26/2012 V25.01 GENERAL COUNSELING ON PRESCRIPTION OF ORAL CONTRACEPTIVES 04/26/2012 465.9 UPPER RESPIRATORY INFECTION 04/26/2012 784.91 POSTNASAL DRIP 04/26/2012 V25.01 GENERAL COUNSELING ON PRESCRIPTION OF ORAL CONTRACEPTIVES 05/29/2012 Ot 305.1 05/29/2012 Ot 490 05/29/2012 Ot 786.2 05/29/2012 Ot 786.52 06/28/2012 Ot 305.20 06/28/2012 Ot 784.0 06/28/2012 Ot 787.01 06/28/2012 Ot 789.09 09/01/2012 625.9 PELVIC PAIN 09/01/2012 625.9 PELVIC PAIN 06/02/2013 EVERARDO RASCON DO Ot 599.0 06/02/2013 EVERARDO RASCON DO S Ot 643.23 06/02/2013 ELKINECH DOEVERARDO S Ot 646.63 09/04/2013 MATT DOAC C Ot 644.13 09/27/2013 GUTIERREZ DO, AC C Ot 650 09/27/2013 GUTIERREZ DO, AC C Ot V06.1 09/27/2013 MATT DO AC C Ot V27.0 03/15/2014 ARLENE TERRELL, CLEMENTE Oconnor Ot 599.0 03/15/2014 CLEMENTE JACOBS MD Ot 646.63 03/15/2014 CLEMENTE JACOBS MD Ot 649.53 02/21/2015 MATT DOMICHAELA C Ot O47.1 02/21/2015 MATT DO, AC C Ot Z3A.37 02/22/2015 Ot 632 02/22/2015 Ot V72.83 02/22/2015 Ot V74.8 02/22/2015 Ot 620.2 02/22/2015 Ot 632 02/22/2015 Ot V72.63 02/22/2015 Ot V74.8 02/22/2015 Ot 719.46 02/22/2015 YAN TERRELL, DARLENE Saucedo Ot 625.9 02/28/2015 MATT DO, AC C Ot O47.1 02/28/2015 MATT DO, AC C Ot Z3A.00 03/12/2015 GUTIERREZ DO, AC C Ot O62.2 03/12/2015 MATT DO, AC C Ot Z37.0 03/12/2015 GUTIERREZ DO, AC C Ot Z3A.39 07/12/2015 Ot 632 07/12/2015 Ot V72.63 07/12/2015 Ot V74.8 07/12/2015 Ot 719.46 07/12/2015 YAN TERRELL, DARLENE Saucedo Ot 625.9 07/12/2015 RICHARD FERGUSON PROOF INSPECTOR Ot S62.634A 07/12/2015 RICHARD FERGUSON PROOF INSPECTOR Ot Y04.8XXA 07/12/2015 RICHARD FERGUSON PROOF INSPECTOR Ot Y92.009 07/12/2015 RICHARD FERGUSON PROOF INSPECTOR Ot Y99.8 08/29/2016 GUTIERREZ DO, AC C Ot O80 ENCOUNTER FOR FULL-TERM UNCOMPLICATED DE 08/29/2016 GUTIERREZAC Quinones DO Ot Z23 ENCOUNTER FOR IMMUNIZATION 08/29/2016 GUTIERREZStacie MONTILLA AC C Ot Z37.0 SINGLE LIVE 08/29/2016 GUTIERREZAC Quinones DO Ot Z3A.38 38 WEEKS GESTATION OF Procedures Code [place] [address] NO CHARGE 2011 94519 URINE TEST (IN-HOUSE) 04/26/2012 46537 GC/CHLAM URINE (STATE) 04/27/2012 10206 URINE TEST (IN-HOUSE) 09/01/2012 34531 UA W/ CULTURE IF INDICATED 09/01/2012 16640 US PELVIC COMPL (REFLEX CPT- 89951) 09/01/2012 36034 CULTURE URINE OBSTETRIC MARJAN MARTINES 09/30/2012 [id number] DELIVERY OF PRODUCTS OF CONCEPTION, EXTE 08/27/2016 Results Test Result Range Complete blood count (CBC) with automated white blood cell (WBC) differential - 08/27/16 11:50 Blood leukocytes automated count (number/volume) 16.3 10*3/ uL 4.3-11.0 Blood erythrocytes automated count (number/volume) 4.34 10*6 /uL 4.35-5.85 Venous blood hemoglobin measurement (mass/volume) 12.7 g/dL 11.5-16.0 Blood hematocrit (volume fraction) 39 % 35-52 Automated erythrocyte mean corpuscular volume 89 [foz_us] 80-99 Automated erythrocyte mean corpuscular hemoglobin (mass per erythrocyte) 29 pg 25-34 Automated erythrocyte mean corpuscular hemoglobin concentration measurement ( mass/volume) 33 g/dL 32-36 Automated erythrocyte distribution width ratio 13.5 % 10.0-14.5 Automated blood platelet count (count/volume) 252 10*3/uL 130-400 Automated blood platelet mean volume measurement 11.5 [foz_ us] 7.4-10.4 Automated blood neutrophils/100 leukocytes 75 % 42-75 Automated blood lymphocytes/100 leukocytes 18 % 12-44 Blood monocytes/100 leukocytes 6 % 0-12 Automated blood eosinophils/100 leukocytes 1 % 0-10 Automated blood basophils/100 leukocytes 0 % 0-10 Blood neutrophils automated count (number/volume) 12.2 10*3 1.8-7.8 Blood lymphocytes automated count (number/volume) 3.0 10*3 1.0-4.0 Blood monocytes automated count (number/volume) 1.0 10*3 0.0-1.0 Automated eosinophil count 0.1 10*3/uL 0.0-0.3 Automated blood basophil count (count/volume) 0.0 10*3/uL 0.0-0.1 Blood type T Indirect antibody screen panel - 08/27/16 11:50 ABO+Rh group OP NRG Transfusion band number [id number] NRG Blood group antibody screen NEGATIVE NRG Complete urinalysis with reflex to culture - 08/27/16 11:50 Urine color determination YELLOW NRG Urine clarity determination CLEAR NRG Urine pH measurement by test strip 7 5- 9 Specific gravity of urine by test strip 1.010 1.016-1.022 Urine protein assay by test strip, semi-quantitative NEGATIVE NEGATIVE Urine glucose detection by automated test strip NEGATIVE NEGATIVE Erythrocytes detection in urine sediment by light microscopy 1+ NEGATIVE Urine ketones detection by automated test strip 2+ NEGATIVE Urine nitrite detection by test strip NEGATIVE NEGATIVE Urine total bilirubin detection by test strip NEGATIVE NEGATIVE Urine urobilinogen measurement by automated test strip (mass/volume) NORMAL NORMAL Urine leukocyte esterase detection by dipstick 1+ NEGATIVE Automated urine sediment erythrocyte count by microscopy (number/high power field) RARE NRG Automated urine sediment leukocyte count by microscopy (number/high power field ) [HPF] NRG Bacteria detection in urine sediment by light microscopy TRACE NRG Crystals detection in urine sediment by light microscopy PRESENT NRG Casts detection in urine sediment by light microscopy NONE NRG Mucus detection in urine sediment by light microscopy MODERATE NRG Complete urinalysis with reflex to culture NO NRG Amorphous sediment detection in urine sediment by light microscopy FEW MAXX PHOSPHATE NRG Blood manual differential performed detection - 08/27/16 11:50 Blood monocytes/100 leukocytes 2 % NRG Manual blood segmented neutrophils/100 leukocytes 71 % NRG Blood band neutrophils/100 leukocytes 1 % NRG Manual blood lymphocytes/100 leukocytes 24 % NRG Manual eosinophils/100 leukocytes in nose 1 % NRG Manual blood basophils/100 leukocytes 0 % NRG Blood lymphocytes variant/100 leukocytes 1 % NRG Blood erythrocyte morphology finding identification NORMAL NRG Complete blood count (CBC) with automated white blood cell (WBC) differential - 08/28/16 06:10 Blood leukocytes automated count (number/volume) 16.3 10*3/ uL 4.3-11.0 Blood erythrocytes automated count (number/volume) 3.61 10*6 /uL 4.35-5.85 Venous blood hemoglobin measurement (mass/volume) 10.7 g/dL 11.5-16.0 Blood hematocrit (volume fraction) 32 % 35-52 Automated erythrocyte mean corpuscular volume 90 [foz_us] 80-99 Automated erythrocyte mean corpuscular hemoglobin (mass per erythrocyte) 30 pg 25-34 Automated erythrocyte mean corpuscular hemoglobin concentration measurement ( mass/volume) 33 g/dL 32-36 Automated erythrocyte distribution width ratio 13.4 % 10.0-14.5 Automated blood platelet count (count/volume) 209 10*3/uL 130-400 Automated blood platelet mean volume measurement 11.2 [foz_ us] 7.4-10.4 Automated blood neutrophils/100 leukocytes 69 % 42-75 Automated blood lymphocytes/100 leukocytes 22 % 12-44 Blood monocytes/100 leukocytes 7 % 0-12 Automated blood eosinophils/100 leukocytes 1 % 0-10 Automated blood basophils/100 leukocytes 0 % 0-10 Blood neutrophils automated count (number/volume) 11.3 10*3 1.8-7.8 Blood lymphocytes automated count (number/volume) 3.7 10*3 1.0-4.0 Blood monocytes automated count (number/volume) 1.2 10*3 0.0-1.0 Automated eosinophil count 0.2 10*3/uL 0.0-0.3 Automated blood basophil count (count/volume) 0.0 10*3/uL 0.0-0.1 Encounters ACCT No. Visit Date/Time Discharge Status Pt. Type Provider Facility Loc./Unit Complaint [id number] 04/26/2012 15:23:00 04/26/2012 23: 59:59 CLS Outpatient SURAJ MONTILLA [id number] 03/14/2012 08:07:00 03/14/2012 23:59 :59 CLS Outpatient [id number] 09/29/2012 14:26:00 Document Registration [id number] 09/01/2012 15:22:00 Document Registration
[2016-11-19 20:43] LABS: BASOPHILS % (AUTO) 0 % (0-10); EOSINOPHILS # (AUTO) 0.2 10^3/uL (0.0-0.3); EOSINOPHILS % (AUTO) 1 % (0-10); LYMPHOCYTES # (AUTO) 2.9 X 10^3 (1.0-4.0); LYMPHOCYTES % (AUTO) 14 % (12-44); MEAN CORPUSCULAR HEMOGLOBIN 29 PG (25-34); MEAN CORPUSCULAR HGB CONC 33 G/DL (32-36); MEAN CORPUSCULAR VOLUME 87 FL (80-99); MEAN PLATELET VOLUME 11.5 FL (7.4-10.4); MONOCYTES # (AUTO) 1.1 X 10^3 (0.0-1.0); MONOCYTES % (AUTO) 6 % (0-12); NEUTROPHILS # (AUTO) 16.3 X 10^3 (1.8-7.8); NEUTROPHILS % (AUTO) 80 % (42-75); PLATELET COUNT 295 10^3/uL (130-400); RED BLOOD COUNT 4.49 10^6/uL (4.35-5.85); RED CELL DISTRIBUTION WIDTH 13.7 % (10.0-14.5); WHITE BLOOD COUNT 20.5 10^3/uL (4.3-11.0)
[2016-11-19] MEDS ORDERED: IOHEXOL 350 MG/ML 100 ML (OMNIPAQUE 350) VIAL IV ONE (20:45)
[2016-11-19] MEDS ORDERED: NS 100 ML (IVPB) BAG IV ONE (20:45)
[2016-11-19] MEDS ORDERED: fentaNYL INJECTION 100 MCG/2 ML AMP IVP ONE ×3 (20:45→21:30)
[2016-11-19 21:02] LABS: BAND NEUTROPHILS 0 %; BASOPHILS % (MANUAL) 0 %; EOSINOPHILS % (MANUAL) 0 %; LYMPHOCYTES % (MANUAL) 21 %; NEUTROPHILS % (MANUAL) 79 %
[2016-11-19 21:15] LABS: ALANINE AMINOTRANSFERASE 13 U/L (0-55); ALBUMIN 4.2 GM/DL (3.2-4.5); AMYLASE 103 U/L (25-125); ANION GAP 12 MMOL/L (5-14); ASPARTATE AMINO TRANSFERASE 11 U/L (5-34); BILIRUBIN,TOTAL 0.3 MG/DL (0.1-1.0); BLOOD UREA NITROGEN 7 MG/DL (7-18); BUN/CREATININE RATIO 11; CARBON DIOXIDE 19 MMOL/L (21-32); CHLORIDE 109 MMOL/L (98-107); CREATININE SERUM 0.65 MG/DL (0.60-1.30); GFR ESTIMATED > 60; GLUCOSE 94 MG/DL (70-105); LIPASE 19 U/L (8-78); POTASSIUM 3.6 MMOL/L (3.6-5.0); SODIUM 140 MMOL/L (135-145); TOTAL PROTEIN 6.9 GM/DL (6.4-8.2)
[2016-11-19] MEDS ORDERED: morphine INJ 10 MG/ML 1ML (SYR OR VIAL) IVP ONE (21:15)
[2016-11-19 21:23] LABS: BILIRUBIN,URINE NEGATIVE (NEGATIVE); KETONES,URINE 4+ (NEGATIVE); LEUKOCYTE ESTERASE ,URINE 1+ (NEGATIVE); NITRITE,URINE NEGATIVE (NEGATIVE); PH,URINE 6 (5-9); PROTEIN,URINE 2+ (NEGATIVE); UROBILINOGEN,URINE NORMAL (NORMAL)
[2016-11-19] MEDS ORDERED: cefTRIAXone INJECTION 1,000 MG in NS (IVPB) 50 ML IV ONE (21:30)
[2016-11-19] MEDS ORDERED: KETOROLAC 30 MG/ML VIAL IVP ONE (21:30)
--- NOTE | 2016-11-19 21:41 | Diagnostic Imaging Report ---
PROCEDURE: CT abdomen and pelvis with contrast. TECHNIQUE: Multiple contiguous axial images were obtained through the abdomen and pelvis after administration of intravenous contrast. INDICATION: Abdominal pain. COMPARISON: Prior examination from 06/10/07. FINDINGS: The lung bases are clear. The liver is normal in size. There is a non-specific low-density lesion just lateral to the gallbladder in the right lobe of the liver, measuring 1.5 cm. This appears to have some nodular enhancement. This is likely a cavernous hemangioma, however, it could be better evaluated with three-phase contrast-enhanced CT. The spleen is unremarkable. The pancreas and adrenal glands are unremarkable. Left kidney is normal. There is severe right hydronephrosis and hydroureter with some enhancement of the uroepithelium. This appears to be secondary to a 3.6 cm stone near the right UVJ. Superimposed pyelonephritis cannot be excluded. The aorta is nonaneurysmal. Bowel gas pattern is nonspecific. There is no free air. There is no ascites. IMPRESSION: 1. Severe right hydronephrosis and hydroureter secondary to a 3.6 mm stone near the right UVJ. There is enhancement of the uroepithelium which may reflect some superimposed pyelonephritis. Recommend clinical correlation. 2. There is a 1.5 cm low-density mass in the right lobe of the liver with questionable peripheral nodular enhancement. This is likely a cavernous hemangioma. This could be further characterized with three-phase contrast-enhanced CT. Dictated by: Dictated on workstation # [id number]
[2016-11-19] MEDS ORDERED: HYDROmorphone (DILAUDID) 2 MG/ML VIAL IVP PRN (22:15)
[2016-11-19] MEDS ORDERED: HYDROmorphone (DILAUDID) 2 MG/ML VIAL IVP ONE (22:15)
[2016-11-19 23:16] VITALS: BP 129/79
== END 2016-11-19 23:16 | disposition short-term general hospital (02) ==
LOC: EDUNIT# 20:31 → ER 20:32
DX: N13.6 Pyonephrosis (principal); K76.9 Liver disease, unspecified
CPT/HCPCS: 36415; 74177; 80053; 80306; 81000; 82150; 83605; 83690; 84703; 85007; 85027; 87040; 96365; 96375

== ENCOUNTER → 2017-06-03 | Outpatient (CLI) | payer MEDICAID ==
[~2017-06-03] MED LIST changes: -HYDR-3812 PO
== END ==
LOC: RAD 09:29
PROVIDERS: ATTEND Internal Medicine
DX: M54.16 Radiculopathy, lumbar region (principal)

== ENCOUNTER → 2017-08-04 | Outpatient (CLI) | payer MEDICAID | LOC: RAD 08:38 | PROVIDERS: ATTEND Internal Medicine | DX: Z53.8 Procedure and treatment not carried out for other reasons (principal); M54.16 Radiculopathy, lumbar region ==

== ENCOUNTER → 2017-09-10 | Outpatient (CLI) | payer MEDICAID ==
[~2017-09-10] MED LIST changes: +GADOBUTROL 7.5 MMOL/7.5 ML (GADAVIST) VIAL IV ONE
--- NOTE | 2017-09-10 11:44 | Diagnostic Imaging Report ---
PROCEDURE: MRI lumbar spine with and without contrast. TECHNIQUE: Multiplanar, multisequence MRI of the lumbar spine was performed with and without contrast. INDICATION: Chronic low back pain and bilateral leg pain and numbness. COMPARISON: No prior MRI studies are available for comparison. FINDINGS: Vertebral body heights are within normal limits. The marrow signal intensity is unremarkable. No fracture or geographic marrow lesion is seen. There is normal height and signal intensity to the lumbar discs apart from some desiccation at the L5-S1 level, likely owing to mild degenerative change. The conus is unremarkable at the L1 level. T12-L1: No central canal or neural foraminal stenosis is identified. L1-2: Unremarkable. L2-3: Unremarkable. L3-4: Unremarkable. L4-5: Unremarkable. L5-S1: There is broad-based disc bulging producing slight indentation upon the ventral thecal sac. However, no central canal stenosis is seen. Neural foramina are patent. Postcontrast imaging is without abnormal enhancement. The paraspinous tissues are unremarkable. IMPRESSION: Mild L5-S1 degenerative disc disease and broad-based disc bulging. However, no resultant central canal or neural foraminal stenosis is identified. Dictated by: Dictated on workstation # [id number]
== END ==
LOC: RAD 10:16
PROVIDERS: ATTEND Internal Medicine
DX: M51.37 Other intervertebral disc degeneration, lumbosacral region (principal); M51.27 Other intervertebral disc displacement, lumbosacral region
CPT/HCPCS: 72158

== ENCOUNTER 2019-01-11 14:33 | Emergency (ER) | payer MEDICAID ==
[~2019-01-11] VITALS: Ht 152.4 cm; Wt 73.5 kg
[~2019-01-11 14:33] MED LIST changes: -GADOBUTROL 7.5 MMOL/7.5 ML (GADAVIST) VIAL IV ONE; +HYDR-4226 PO; -HYDR-757 PO
[2019-01-11] MEDS ORDERED: NS IV 1000 ML 1,000 ML IV SCH (15:02)
[2019-01-11 15:10] LABS: BASOPHILS % (AUTO) 0 % (0-10); EOSINOPHILS % (AUTO) 0 % (0-10); HEMATOCRIT 41 % (35-52); LYMPHOCYTES % (AUTO) 25 % (12-44); MEAN CORPUSCULAR HEMOGLOBIN 28 PG (25-34); MEAN CORPUSCULAR HGB CONC 32 G/DL (32-36); MEAN CORPUSCULAR VOLUME 87 FL (80-99); MEAN PLATELET VOLUME 10.9 FL (7.4-10.4); MONOCYTES # (AUTO) 0.6 X 10^3 (0.0-1.0); MONOCYTES % (AUTO) 5 % (0-12); NEUTROPHILS # (AUTO) 8.4 X 10^3 (1.8-7.8); NEUTROPHILS % (AUTO) 70 % (42-75); PLATELET COUNT 338 10^3/uL (130-400); RED CELL DISTRIBUTION WIDTH 14.1 % (10.0-14.5)
[2019-01-11 15:21] LABS: ALANINE AMINOTRANSFERASE 14 U/L (0-55); ALBUMIN 4.4 GM/DL (3.2-4.5); ALKALINE PHOSPHATASE 85 U/L (40-136); BILIRUBIN,TOTAL 0.3 MG/DL (0.1-1.0); BUN/CREATININE RATIO 11; CALCIUM 9.3 MG/DL (8.5-10.1); CARBON DIOXIDE 24 MMOL/L (21-32); CHLORIDE 108 MMOL/L (98-107); CREATININE SERUM 0.64 MG/DL (0.60-1.30); GFR ESTIMATED > 60; GLUCOSE 90 MG/DL (70-105); POTASSIUM 3.8 MMOL/L (3.6-5.0); SODIUM 139 MMOL/L (135-145); TOTAL PROTEIN 7.3 GM/DL (6.4-8.2)
[2019-01-11 15:41] LABS: BILIRUBIN,URINE NEGATIVE (NEGATIVE); CLARITY,URINE CLEAR; COLOR,URINE YELLOW; GLUCOSE, URINE (UA) NEGATIVE (NEGATIVE); KETONES,URINE 3+ (NEGATIVE); LEUKOCYTE ESTERASE ,URINE 1+ (NEGATIVE); NITRITE,URINE NEGATIVE (NEGATIVE); PH,URINE 8 (5-9); PROTEIN,URINE 2+ (NEGATIVE); UROBILINOGEN,URINE NORMAL (NORMAL)
[2019-01-11 15:43] LABS: BACTERIA,URINE TRACE /HPF; RBC,URINE 0-2 /HPF
--- NOTE | 2019-01-11 15:53 | ED Abdominal Pain ---
General Chief Complaint: Abdominal/GI Problems Stated Complaint: WEAKNESS;LIGHT HEADED;WARM Nursing Triage Note: TO TRIAGE WITH COMPLAINTS OF RIGHT LOWER ABD PAIN, N/V/D, ET BLOOD IN STOOL. WAS SENT HERE FROM [facility] SHE STATES WITH A INLARGED APPENDIX AND COLON. Sepsis Screen: No Definite Risk History of Present Illness Date Seen by Provider: Jan 11, 2019 Time Seen by Provider: 14:45 Initial Comments 28-year-old female presents for 2 week history of right lower abdominal pain. She's been having persistent nausea vomiting and diarrhea with this as well. She was seen at [facility] earlier today very well woman check up, they deferred that and sent her here for evaluation. Solid food intake today, and limited by mouth liquids. Her last vomiting was approximately 45 minutes ago. No previous history of abdominal surgeries. Timing/Duration: Intermittent Severity/Quality: Moderate Location: RLQ Radiation: No Radiation Modifying Factors: Improves With Lying down, Improves With Resting, Improves With Vomiting Associated Symptoms: No Back Pain, No Chest Pain, No Diaphoresis, No Fever/Chills, No Fatigue, No Headache, No Heartburn; Nausea/Vomiting; No Rash, No Shortness of Air, No Swelling/Mass in Abdomen, No Syncope, No Weakness Allergies and Home Medications Allergies Coded Allergies: Penicillins (Verified Allergy, Intermediate, RASH, 06/05/10) adhesive (Verified Allergy, Mild, 09/27/08) peanut (Unverified Allergy, Mild, HIVES, 03/11/15) FROM UNCODED ALLERGIES Home Medications Ibuprofen 600 Mg Tablet, 600 MG PO Q6H PRN for PAIN Prescribed by: AC GUTIERREZ on 08/27/161910 Ondansetron 4 Mg Tab.rapdis, 4 MG PO Q6H PRN for NAUSEA/VOMITING Prescribed by: COURTNEY NEWTON on 01/11/191745 [Albuterol Inhaler] , 90 MCG INH PRN, (Reported) Patient Home Medication List Home Medication List Reviewed: Yes Review of Systems Review of Systems Constitutional: no symptoms reported, see HPI Gastrointestinal: See HPI, Abdomen Distended, Abdominal Pain, Diarrhea, Nausea, Poor Appetite, Poor Fluid Intake, Rectal Bleeding, Vomiting All Other Systems Reviewed Negative Unless Noted: Yes Past Rkwzfsq-Qlvasx-Danohb Hx Past Med/Social Hx: Reviewed and Corrections made Patient Social History Alcohol Use: Rarely Uses Recreational Drug Use: No Smoking Status: Current Everyday Smoker Type Used: Cigarettes Recent Foreign Travel: No Contact w/Someone Who Travel: No Recent Infectious Disease Expo: No Recent Hopitalizations: No Physical Abuse: No Sexual Abuse: No Mistreated: No Fear: No Immunizations Up To Date Tetanus Booster (TDap): Unknown PED Vaccines UTD: No Seasonal Allergies Seasonal Allergies: No Past Medical History Surgeries: Yes (CYST REMOVAL LEFT BREAST/HAND) Breast Respiratory: Yes Asthma Cardiac: No Neurological: No : No Last Menstrual Period: Dec 08, 2018 Hx : 9 Hx Para: 5 Hx Total # of Abortions (Sp): 4 Reproductive Disorders: No Sexually Transmitted Disease: No HIV/AIDS: No Genitourinary: No Gastrointestinal: No Musculoskeletal: No Endocrine: No HEENT: No Cancer: Yes Cervical Did You Recieve Any Treatments: No What Type of Treatment Did You: Surgical Intervention Psychosocial: Yes Anxiety, Depression Integumentary: No Blood Disorders: No Adverse Reaction/Blood Tranf: No Family Medical History Family history: Diabetes mellitus 19 FATHER, Onset:40's - 50 Hearing loss 19 FATHER G8 BROTHER No Family History of: Abdominal aortic aneurysm Alva's disease Alcoholism Aphasia Cancer Cancer of colon Cataract Chest pain Congenital heart disease Congestive heart failure Cystic fibrosis Dementia Dysphagia Family history: Allergy Family history: Alzheimer's disease Family history: Arthritis Family history: Asthma Family history: Breast disease Family history: Cardiovascular disease Family history: Coronary thrombosis Family history: Gastrointestinal disease Family history: Glaucoma Family history: Hypertension Family history: Osteoporosis Family history: Thyroid disorder Headache Heart disease Hereditary disease History of - anemia History of - disorder History of - respiratory disease History of drug abuse Human immunodeficiency virus (HIV) seropositivity Hypercholesterolemia Infertile Kidney disease Malignant neoplasm of lung Myocardial infarction Parkinson's disease Prostate cancer Psychotic disorder Seizure disorder Stroke Tuberculosis Visual impairment Physical Exam Vital Signs Vital Signs - First Documented 01/11/19 14:35 Temp 98.7 Pulse 88 Resp 16 B/P (MAP) 135/91 (106) Pulse Ox 92 O2 Delivery Room Air Capillary Refill : Less Than 3 Seconds Height/Weight/BMI Height: 5'0.00" Weight: 162lbs. 2.0oz. 73.116125rn; 33.0 BMI Method:Stated General Appearance: WD/WN, no apparent distress HEENT: PERRL/EOMI, normal ENT inspection, TMs normal, pharynx normal Neck: non-tender, full range of motion, supple, normal inspection Respiratory: chest non-tender, lungs clear, normal breath sounds Cardiovascular: normal peripheral pulses, regular rate, rhythm Gastrointestinal: normal bowel sounds, soft, distended, guarding, rebound, tenderness; No hernia, No mass; other (positive tap and obturator sign.) Extremities: normal range of motion, non-tender, normal inspection, no calf tenderness, normal capillary refill Neurologic/Psychiatric: no motor/sensory deficits, alert, normal mood/affect, oriented x 3 Skin: normal color, warm/dry; No jaundice Lymphatic: no adenopathy Progress/Results/Core Measures Results/Orders Lab Results Laboratory Tests Test 01/11/19 14:50 01/11/19 15:17 Range/Units White Blood Count 12.0 H 4.3-11.0 10^3/uL Red Blood Count 4.66 4.35-5.85 10^6/uL Hemoglobin 13.0 11.5-16.0 G/DL Hematocrit 41 35-52 % Mean Corpuscular Volume 87 80-99 FL Mean Corpuscular Hemoglobin 28 25-34 PG Mean Corpuscular Hemoglobin Concent 32 32-36 G/DL Red Cell Distribution Width 14.1 10.0-14.5 % Platelet Count 338 130-400 10^3/uL Mean Platelet Volume 10.9 H 7.4-10.4 FL Neutrophils (%) (Auto) 70 42-75 % Lymphocytes (%) (Auto) 25 12-44 % Monocytes (%) (Auto) 5 0-12 % Eosinophils (%) (Auto) 0 0-10 % Basophils (%) (Auto) 0 0-10 % Neutrophils # (Auto) 8.4 H 1.8-7.8 X 10^3 Lymphocytes # (Auto) 3.0 1.0-4.0 X 10^3 Monocytes # (Auto) 0.6 0.0-1.0 X 10^3 Eosinophils # (Auto) 0.0 0.0-0.3 10^3/uL Basophils # (Auto) 0.0 0.0-0.1 10^3/uL Sodium Level 139 135-145 MMOL/L Potassium Level 3.8 3.6-5.0 MMOL/L Chloride Level 108 H 98-107 MMOL/L Carbon Dioxide Level 24 21-32 MMOL/L Anion Gap 7 5-14 MMOL/L Blood Urea Nitrogen 7 7-18 MG/DL Creatinine 0.64 0.60-1.30 MG/DL Estimat Glomerular Filtration Rate > 60 BUN/Creatinine Ratio 11 Glucose Level 90 70-105 MG/DL Calcium Level 9.3 8.5-10.1 MG/DL Corrected Calcium 9.0 8.5-10.1 MG/DL Total Bilirubin 0.3 0.1-1.0 MG/DL Aspartate Amino Transf (AST/SGOT) 17 5-34 U/L Alanine Aminotransferase (ALT/SGPT) 14 0-55 U/L Alkaline Phosphatase 85 40-136 U/L Total Protein 7.3 6.4-8.2 GM/DL Albumin 4.4 3.2-4.5 GM/DL Urine Color YELLOW Urine Clarity CLEAR Urine pH 8 5-9 Urine Specific [place] 1.015 L 1.016-1.022 Urine Protein 2+ H NEGATIVE Urine Glucose (UA) NEGATIVE NEGATIVE Urine Ketones 3+ H NEGATIVE Urine Nitrite NEGATIVE NEGATIVE Urine Bilirubin NEGATIVE NEGATIVE Urine Urobilinogen NORMAL NORMAL MG/DL Urine Leukocyte Esterase 1+ H NEGATIVE Urine RBC (Auto) 1+ H NEGATIVE Urine RBC 0-2 /HPF Urine WBC 2-5 /HPF Urine Squamous Epithelial Cells 2-5 /HPF Urine Crystals NONE /LPF Urine Bacteria TRACE /HPF Urine Casts NONE /LPF Urine Mucus LARGE H /LPF Urine Culture Indicated NO My Orders Orders - COURTNEY NEWTON Urine Bedside (01/11/19 15:02) Cbc With Automated Diff (01/11/19 15:02) Comprehensive Metabolic Panel (01/11/19 15:02) Ua Culture If Indicated (01/11/19 15:02) Ed Iv/Invasive Line Start (01/11/19 15:02) Ns Iv 1000 Ml (Sodium Chloride 0.9%) (01/11/19 15:02) Ondansetron Injection (Zofran Injectio (01/11/19 16:00) Fentanyl Injection (Sublimaze Injection (01/11/19 16:00) Ct Abd/Pelv W (Appendicitis) (01/11/19 15:49) Iohexol Injection (Omnipaque 350 Mg/Ml 1 (01/11/19 17:15) Received Contrast (Hold Metformin- Contr (01/11/19 17:15) Ns (Ivpb) (Sodium Chloride 0.9% Ivpb Bag (01/11/19 17:15) Medications Given in ED Current Medications Medications Dose Ordered Sig/Bobbi Route Start Time Stop Time Status Last Admin Dose Admin Fentanyl Citrate 50 mcg ONCE ONCE IVP 01/11/19 16:00 01/11/19 16:01 DC 01/11/19 16:03 50 MCG Iohexol 100 ml ONCE ONCE IV 01/11/19 17:15 01/11/19 17:16 DC 01/11/19 17:08 92 ML Ondansetron HCl 4 mg ONCE ONCE IVP 01/11/19 16:00 01/11/19 16:01 DC 01/11/19 16:03 4 MG Sodium Chloride 100 ml ONCE ONCE IV 01/11/19 17:15 01/11/19 17:16 DC 01/11/19 17:08 80 ML Vital Signs/I&O 01/11/19 01/11/19 14:35 17:54 Temp 98.7 98.7 Pulse 88 82 Resp 16 16 B/P (MAP) 135/91 (106) 120/90 (100) Pulse Ox 92 99 O2 Delivery Room Air Room Air Blood Pressure Mean: 106 Progress Progress Note : Time: 14:45 Progress Note Patient seen and evaluated. Will obtain labs and reevaluate. Zofran 4 mg IV for nausea. [address] abdomen and pelvis with contrast. Fentanyl 50 g IV once for pain. Normal saline 1 L per IV. 1630 CT exam shows no acute findings. Will try ice chips 1730 no further nausea or vomiting. Discharge instructions and return precautions reviewed. Diagnostic Imaging Diagonstic Imaging: CT Plain Films/CT/US/NM/MRI: abdomen, pelvis Comments NAME: TIM BELLE [facility] REC#: [id number] PHYSICIAN: COURTNEY NEWTON CC: FIONA SAGE MD; COURTNEY NEWTON Page 1 of 1 RADIOLOGY REPORT [facility] [place], [place] CC: FIONA SAGE MD; COURTNEY NEWTON Page 1 of 1 RADIOLOGY REPORT Date of Exam: 01/11/19 CT ABD/PELV W (APPENDICITIS) PROCEDURE: CT abdomen and pelvis with contrast, rule out appendicitis. TECHNIQUE: Multiple contiguous axial images were obtained through the abdomen and pelvis after the administration of intravenous contrast. INDICATION: Right lower abdominal pain with nausea, vomiting, and diarrhea. Blood in the stool. FINDINGS: There is 2 cm low-density lesion in the right lobe of the liver which has a benign appearance. This may be a hemangioma. No suspicious liver lesions are seen. The gallbladder and bile ducts are normal. The spleen, pancreas, and adrenals are normal. The kidneys, ureters, and bladder are normal. There are probable nabothian cysts in the cervix. There is no adnexal mass. There are changes of prior tubal ligation. The appendix is normal. No acute bowel abnormality is seen. There is no free intraperitoneal air or fluid. There is no bony abnormality. IMPRESSION: No acute abnormality is seen. Dictated by: Dictated on workstation # [id number] Dict: 01/11/197 Trans: 01/11/191714 Interpreted by: FIONA SAGE MD Electronically signed by: FIONA SAGE MD 01/11/191714 Reviewed: Reviewed by Me Departure Impression Primary Impression: Abdominal wall pain Disposition: 01 HOME, SELF-CARE Condition: Improved Departure-Patient Inst. Decision time for Depature: 17:30 Referrals: LILA DURAN MD (PCP/Family) Primary Care Physician Patient Instructions: Acute Abdomen (Belly Pain), Adult (DC) Add. Discharge Instructions: Clear liquid diet for the next 4-6 hours, then bland diet. Lbnf-[id number] antidiarrheal medicine as needed. Use the Zofran every 8 hours for nausea and vomiting. Follow-up at [facility] if symptoms are not improving or worsen. Alternate between Tylenol 650 mg and ibuprofen 600 mg every 4 hours for pain. Return to emergency department for fever greater than 101 not relieved by Tylenol and ibuprofen, increased nausea and vomiting, or worsening pain. All discharge instructions reviewed with patient and/or family. Voiced understanding. Scripts Ondansetron (Ondansetron Odt) 4 Mg Tab.rapdis 4 MG PO Q6H PRN for NAUSEA/VOMITING, #8 TAB 0 Refills Prov: COURTNEY NEWTON 01/11/19 Copy Copies To 1: LILA DURAN MD, AMY ARNP Jan 11, 2019 15:53
[2019-01-11] MEDS ORDERED: fentaNYL INJECTION 100 MCG/2 ML AMP IVP ONE (16:00)
[2019-01-11] MEDS ORDERED: ONDANSETRON 4 MG/2 ML (SDV) Z0FRAN IVP ONE (16:00)
--- NOTE | 2019-01-11 16:20 | NUR ---
Pain re-assessed at this time. Pt rates pain 3/10 after pain media consultant
--- NOTE | 2019-01-11 17:14 | Diagnostic Imaging Report ---
PROCEDURE: CT abdomen and pelvis with contrast, rule out appendicitis. TECHNIQUE: Multiple contiguous axial images were obtained through the abdomen and pelvis after the administration of intravenous contrast. INDICATION: Right lower abdominal pain with nausea, vomiting, and diarrhea. Blood in the stool. FINDINGS: There is 2 cm low-density lesion in the right lobe of the liver which has a benign appearance. This may be a hemangioma. No suspicious liver lesions are seen. The gallbladder and bile ducts are normal. The spleen, pancreas, and adrenals are normal. The kidneys, ureters, and bladder are normal. There are probable nabothian cysts in the cervix. There is no adnexal mass. There are changes of prior tubal ligation. The appendix is normal. No acute bowel abnormality is seen. There is no free intraperitoneal air or fluid. There is no bony abnormality. IMPRESSION: No acute abnormality is seen. Dictated by: Dictated on workstation # [id number]
[2019-01-11] MEDS ORDERED: IOHEXOL 350 MG/ML 100 ML (OMNIPAQUE 350) VIAL IV ONE (17:15)
[2019-01-11] MEDS ORDERED: HOLD METFORMIN - RECEIVED CONTRAST 20 ML VIAL IV SCH (17:15)
[2019-01-11] MEDS ORDERED: NS 100 ML (IVPB) BAG IV ONE (17:15)
[2019-01-11] MEDS ORDERED: ONDA4TAB11 PO (17:46)
[2019-01-11 17:54] VITALS: BP 120/90
== END 2019-01-11 17:54 | disposition home or self-care (01) ==
LOC: EDUNIT# 14:33 → ER 14:34
DX: R10.31 Right lower quadrant pain (principal); J45.909 Unspecified asthma, uncomplicated; F17.210 Nicotine dependence, cigarettes, uncomplicated; F41.9 Anxiety disorder, unspecified; F32.9 Major depressive disorder, single episode, unspecified; Z85.41 Personal history of malignant neoplasm of cervix uteri; Z88.0 Allergy status to penicillin; Z88.8 Allergy status to other drugs, medicaments and biological substances; Z91.010 Allergy to peanuts
CPT/HCPCS: 36415; 74177; 80053; 81000; 84703; 85025; 96361; 96374; 96375

== ENCOUNTER 2019-02-16 05:37 | Outpatient (CLI) | payer MEDICAID ==
[~2019-02-16] VITALS: Ht 152 cm; Wt 73.6 kg
[~2019-02-16 05:37] MED LIST changes: +ONDA4TAB11 PO
[2019-02-16] MEDS ORDERED: RT-ALBUINH IH (10:27)
== END 2019-02-16 11:09 | disposition home or self-care (01) ==
LOC: PREOP 05:37
PROVIDERS: ATTEND Surgery
DX: Z01.818 Encounter for other preprocedural examination (principal)

== ENCOUNTER → 2019-03-02 | Outpatient (CLI) | payer MEDICAID ==
[~2019-03-02] MED LIST changes: +RT-ALBUINH IH
--- NOTE | 2019-03-02 08:40 | Diagnostic Imaging Report ---
PROCEDURE: US Gallbladder. TECHNIQUE: Multiple real-time grayscale images were obtained over the right upper quadrant in various projections. INDICATION: Abdominal pain. FINDINGS: There is a 2.1 x 2.3 x 2.0 cm hyperechoic lesion in the right lobe of the liver adjacent to the gallbladder. This is probably a hemangioma. Liver parenchyma is otherwise normal. The liver is not enlarged. Gallbladder is clear with no stones or wall thickening. The common duct is not dilated. Pancreas is normal. Right kidney measures 12.8 cm in length and appears normal. There is no ascites. IMPRESSION: Hyperechoic lesion near the gallbladder and the liver consistent with a hemangioma. Dictated by: Dictated on workstation # [id number]
== END ==
LOC: RAD 07:56
PROVIDERS: ATTEND Surgery
DX: K76.9 Liver disease, unspecified (principal)
CPT/HCPCS: 76705

== ENCOUNTER → 2019-03-17 | Outpatient (CLI) | payer MEDICAID ==
[~2019-03-17] MED LIST changes: +CATHETER FLUSH 10 ML SYR IV PRN
--- NOTE | 2019-03-17 11:45 | Diagnostic Imaging Report ---
Clinical indication: Patient with history of abdominal pain. Comparison: Gallbladder ultrasound dated 03/02/2019. Procedure: The patient was administered 5.46 millicuries of technetium 99m Choletec. After 60 minutes of the images, one can of Ensure was drink followed by another 60 minutes of imaging. A nuclear medicine hepatobiliary scan with ejection fraction was performed. Findings: There is prompt uptake and excretion of radiotracer by the liver. Activity is visible in the gallbladder by 15 minutes and the small bowel by 65 minutes. Ejection fraction of the gallbladder is calculated at 68% (normal >33%). The gallbladder visibly empties on the scans following the ingestion of Ensure. Impression: Normal hepatobiliary scan with normal gallbladder ejection fraction. Dictated by: Dictated on workstation # [id number]
== END ==
LOC: CARD 09:08
PROVIDERS: ATTEND Surgery
DX: R10.9 Unspecified abdominal pain (principal)
CPT/HCPCS: 78227

== ENCOUNTER 2019-09-29 09:10 | Outpatient (RCR) | payer MEDICAID ==
[~2019-09-29] VITALS: Ht 152 cm
[~2019-09-29 09:10] MED LIST changes: -CATHETER FLUSH 10 ML SYR IV PRN
[2019-10-04] MEDS ORDERED: HYDR-4226 PO (08:51)
== END 2019-09-29 14:47 | disposition home or self-care (01) ==
LOC: PREOP 09:10
PROVIDERS: ATTEND Surgery
DX: Z01.818 Encounter for other preprocedural examination (principal); Z01.812 Encounter for preprocedural laboratory examination; Z11.59 Encounter for screening for other viral diseases; R10.13 Epigastric pain; R11.2 Nausea with vomiting, unspecified
CPT/HCPCS: 87635

== ENCOUNTER → 2020-08-07 | Outpatient (CLI) | payer MEDICAID ==
--- NOTE | 2020-08-08 10:43 | Diagnostic Imaging Report ---
INDICATION: Bilateral breast lumps. TECHNIQUE: All 4 quadrants of the right and left breasts as well as retroareolar regions of the right and left breasts were evaluated with ultrasound. FINDINGS: On the right, there is a small cyst at the 11 o'clock location 7 cm from the nipple measuring 5 mm x 3 mm x 4 mm. No other masses on the right are identified. The right axilla is unremarkable. On the left, there is a tiny hypoechoic nodule at the 12 o'clock location 5 cm from the nipple measuring 4 mm x 3 mm x 5 mm. No internal vascularity is seen. This could represent a small cyst versus a small fibroadenoma or lymph node. No other abnormalities are seen. At the area of the patient's palpable abnormality, only fibrocystic tissue is identified. The left axilla is unremarkable. IMPRESSION: Benign appearing subcentimeter nodules in both breasts, as described. No concerning sonographic abnormality is detected. ACR BI-RADS Category 2: Benign findings. Dictated by: Dictated on workstation # [id number]
== END ==
LOC: RAD 13:50
PROVIDERS: ATTEND Obstetrics & Gynecology
DX: N63.11 Unspecified lump in the right breast, upper outer quadrant (principal); N63.25 Unspecified lump in the left breast, overlapping quadrants

== ENCOUNTER 2022-09-15 17:17 | Emergency (ER) | payer MEDICAID ==
[~2022-09-15 17:17] MED LIST changes: +ALBU8.5H6 IH; -RT-ALBUINH IH
--- NOTE | 2022-09-15 17:30 | ED Abdominal Pain ---
General Chief Complaint: Abdominal/GI Problems Stated Complaint: ABDOMINAL PAIN Source of Information: Patient Exam Limitations: No Limitations (ANITA MUKHERJEE MD) History of Present Illness Date Seen by Provider: September 15, 2022 Time Seen by Provider: 17:30 Initial Comments Patient is a 32-year-old female who presents to the emergency room with a chief complaint of midepigastric right upper quadrant abdominal pain nausea, vomiting and diarrhea for the last 15 hours. Patient states she woke up around 2 AM with symptoms. She states she has been dry heaving all day. She denies any blood in her stool or blood in her vomit. She states she has not really urinated all day. She has not been able to hold anything down. She primarily takes psychiatric medications and has not taken them today due to the vomiting. She states her temperature has been "between 100- 101". She denies any abnormal vaginal discharge. She has never had pain like this before. She has had prior kidney stones but this feels different. Patient was seen at the walk-in clinic on [facility] and sent to the emergency room because she states the provider there thought "my eyes were sunken", "I was pale" and "might be dehydrated". Last menstrual cycle was a week and a half ago. She has had tubal ligation. Timing/Duration: 12-24 Hours Severity/Quality: Severe, Aching Location: Generalized Abdomen Radiation: No Radiation Activities at Onset: Sleeping Associated Symptoms: Nausea/Vomiting, Weakness (ANITA MUKHERJEE MD) Allergies and Home Medications Allergies Coded Allergies: Penicillins (Verified Allergy, Intermediate, RASH, 02/16/19) Latex, Natural Rubber (Verified Allergy, Mild, HIVES, 09/27/19) adhesive (Verified Allergy, Mild, 02/16/19) medroxyprogesterone (Verified Allergy, Mild, N/V, 09/27/19) peanut (Unverified Allergy, Mild, HIVES, 02/16/19) FROM UNCODED ALLERGIES Patient Home Medication List Home Medication List Reviewed: Yes (ANITA MUKHERJEE MD) Albuterol Sulfate (Ventolin Hfa) 1 Puff Puff, 2 PUFF IH Q4H PRN for SHORTNESS OF BREATH, (Reported) Entered as Reported by: OLYA LEMUS on 02/16/19 1027 Hydrocodone/Acetaminophen (Hydrocodone/Acetaminophen 5 MG/325 MG TAB) 1 Each Tablet, 1 TAB PO Q6H Prescribed by: MARIAJOSE PARSON on 10/04/19 0851 Review of Systems Review of Systems Constitutional: see HPI, weakness EENTM: No Symptoms Reported Respiratory: No Symptoms Reported Cardiovascular: No Symptoms Reported Gastrointestinal: Abdominal Pain, Diarrhea, Nausea, Vomiting Genitourinary: Other (Decreased amount) Musculoskeletal: no symptoms reported Skin: no symptoms reported Psychiatric/Neurological: No Symptoms Reported (ANITA MUKHERJEE MD) All Other Systems Reviewed Negative Unless Noted: Yes (ANITA MUKHERJEE MD) Past Psalyfi-Dromky-Kmqybn Hx Patient Social History Tobacco Use?: No Substance use?: Yes Substance type: Marijuana Alcohol Use?: No Pt feels they are or have been: No (ANITA MUKHERJEE MD) Immunizations Up To Date Tetanus Booster (TDap): Unknown PED Vaccines UTD: No Influenza Vaccine Up-to-Date: No; Not Current (ANITA MUKHERJEE MD) Seasonal Allergies Seasonal Allergies: No (ANITA MUKHERJEE MD) Past Medical History Surgery/Hospitalization HX: GALLBLADDER, TUBAL Surgeries: Yes (CYST REMOVAL LEFT BREAST/HAND, CTR BILAT) Breast Respiratory: Yes Asthma Cardiac: No Neurological: No Reproductive Disorders: No Sexually Transmitted Disease: No HIV/AIDS: No Genitourinary: No Gastrointestinal: Yes (N/V, ABD PAIN) Gall Bladder Disease Musculoskeletal: No Endocrine: No HEENT: Yes (GLASSES) Cancer: Yes Cervical Did You Recieve Any Treatments: No What Type of Treatment Did You: Surgical Intervention Psychosocial: Yes Anxiety, Depression Integumentary: No Blood Disorders: No Adverse Reaction/Blood Tranf: No (N/A) (ANITA MUKHERJEE MD) Family Medical History Family history: Diabetes mellitus 19 FATHER, Onset:40's - 50 Hearing loss 19 FATHER G8 BROTHER No Family History of: Abdominal aortic aneurysm [place]igo's disease Alcoholism Aphasia Cancer Cancer of colon Cataract Chest pain Congenital heart disease Congestive heart failure Cystic fibrosis Dementia Dysphagia Family history: Allergy Family history: Alzheimer's disease Family history: Arthritis Family history: Asthma Family history: Breast disease Family history: Cardiovascular disease Family history: Coronary thrombosis Family history: Gastrointestinal disease Family history: Glaucoma Family history: Hypertension Family history: Osteoporosis Family history: Thyroid disorder Headache Heart disease Hereditary disease History of - anemia History of - disorder History of - respiratory disease History of drug abuse Human immunodeficiency virus (HIV) seropositivity Hypercholesterolemia Infertile Kidney disease Malignant neoplasm of lung Myocardial infarction Parkinson's disease Prostate cancer Psychotic disorder Seizure disorder Stroke Tuberculosis Visual impairment Physical Exam Vital Signs Vital Signs - First Documented 09/15/22 17:18 Pulse 82 Resp 18 B/P (MAP) 94/77 (83) Pulse Ox 99 O2 Delivery Room Air ([facility]) Vital Signs Capillary Refill : (ANITA MUKHERJEE MD) Height/Weight/BMI Height: 5'0.00" Weight: 162lbs. 2.0oz. 73.723423kf; 26.27 BMI Method:Stated General Appearance: WD/WN, mild distress HEENT: PERRL/EOMI Respiratory: lungs clear, normal breath sounds, no respiratory distress, no ac cessory muscle use Cardiovascular: regular rate, rhythm Gastrointestinal: soft, abnormal bowel sounds (Slightly hyperactive bowel sounds noted on the left), tenderness (Tenderness in the epigastrium and right flank/right lower quadrant even to light palpation of the skin) Extremities: normal range of motion, normal inspection Neurologic/Psychiatric: alert, normal mood/affect, oriented x 3 Skin: normal color, warm/dry (ANITA MUKHERJEE MD) Progress/Results/Core Measures Results/Orders Lab Results Laboratory Tests Test 09/15/22 17:20 09/15/22 17:50 Range/Units White Blood Count 11.6 H 4.3-11.0 10^3/uL Red Blood Count 4.47 3.80-5.11 10^6/uL Hemoglobin 13.4 11.5-16.0 g/dL Hematocrit 39 35-52 % Mean Corpuscular Volume 88 80-99 fL Mean Corpuscular Hemoglobin 30 25-34 pg Mean Corpuscular Hemoglobin Concent 34 32-36 g/dL Red Cell Distribution Width 13.0 10.0-14.5 % Platelet Count 271 130-400 10^3/uL Mean Platelet Volume 10.7 9.0-12.2 fL Immature Granulocyte % (Auto) 0 % Neutrophils (%) (Auto) 89 H 42-75 % Lymphocytes (%) (Auto) 8 L 12-44 % Monocytes (%) (Auto) 3 0-12 % Eosinophils (%) (Auto) 0 0-10 % Basophils (%) (Auto) 0 0-10 % Neutrophils # (Auto) 10.4 H 1.8-7.8 10^3/uL Lymphocytes # (Auto) 0.9 L 1.0-4.0 10^3/uL Monocytes # (Auto) 0.3 0.0-1.0 10^3/uL Eosinophils # (Auto) 0.0 0.0-0.3 10^3/uL Basophils # (Auto) 0.0 0.0-0.1 10^3/uL Immature Granulocyte # (Auto) 0.0 0.0-0.1 10^3/uL Neutrophils % (Manual) 88 % Lymphocytes % (Manual) 10 % Monocytes % (Manual) 2 % Eosinophils % (Manual) 0 % Basophils % (Manual) 0 % Band Neutrophils 0 % Blood Morphology Comment NORMAL Sodium Level 138 135-145 MMOL/L Potassium Level 3.8 3.6-5.0 MMOL/L Chloride Level 107 98-107 MMOL/L Carbon Dioxide Level 18 L 21-32 MMOL/L Anion Gap 13 5-14 MMOL/L Blood Urea Nitrogen 12 7-18 MG/DL Creatinine 0.69 0.60-1.30 MG/DL Estimat Glomerular Filtration Rate 118 BUN/Creatinine Ratio 17 Glucose Level 107 H 70-105 MG/DL Calcium Level 9.7 8.5-10.1 MG/DL Corrected Calcium 8.5-10.1 MG/DL Total Bilirubin 0.3 0.1-1.0 MG/DL Aspartate Amino Transf (AST/SGOT) 15 5-34 U/L Alanine Aminotransferase (ALT/SGPT) 18 0-55 U/L Alkaline Phosphatase 84 40-136 U/L Total Protein 7.6 6.4-8.2 GM/DL Albumin 4.7 H 3.2-4.5 GM/DL Urine Color YELLOW Urine Clarity CLEAR Urine pH 6.0 5-9 Urine Specific [place] >=1.030 1.016-1.022 Urine Protein 1+ H NEGATIVE Urine Glucose (UA) NEGATIVE NEGATIVE Urine Ketones TRACE H NEGATIVE Urine Nitrite NEGATIVE NEGATIVE Urine Bilirubin NEGATIVE NEGATIVE Urine Urobilinogen 0.2 < = 1.0 MG/DL Urine Leukocyte Esterase NEGATIVE NEGATIVE Urine RBC (Auto) 3+ H NEGATIVE Urine RBC 25-50 H /HPF Urine WBC NONE /HPF Urine Squamous Epithelial Cells RARE /HPF Urine Crystals NONE /LPF Urine Bacteria NEGATIVE /HPF Urine Casts NONE /LPF Urine Mucus NEGATIVE /LPF Urine Culture Indicated NO (PRERNA GAMBINO DO) My Orders Orders - PRERNA GAMBINO DO Ct Abdomen/Pelvis W (09/15/22 18:07) Iohexol Injection (Omnipaque 350 Mg/Ml 1 (09/15/22 18:45) Received Contrast (Hold Metformin- Contr (09/15/22 18:45) Ns (Ivpb) (Sodium Chloride 0.9% Ivpb Bag (09/15/22 18:45) (PRERNA GAMBINO DO) Medications Given in ED Current Medications Medications Dose Ordered Sig/Bobbi Route Start Time Stop Time Status Last Admin Dose Admin Iohexol 100 ml ONCE ONCE IV 09/15/22 18:45 09/15/22 18:46 DC 09/15/22 18:44 80 ML Ketorolac Tromethamine 15 mg ONCE ONCE IVP 09/15/22 17:45 09/15/22 17:46 DC 09/15/22 17:46 15 MG Ondansetron HCl 8 mg ONCE ONCE IVP 09/15/22 17:45 09/15/22 17:46 DC 09/15/22 17:46 8 MG Sodium Chloride 100 ml ONCE ONCE IV 09/15/22 18:45 09/15/22 18:46 DC 09/15/22 18:44 80 ML (PRERNA GAMBINO DO) Vital Signs/I&O 09/15/22 17:18 Pulse 82 Resp 18 B/P (MAP) 94/77 (83) Pulse Ox 99 O2 Delivery Room Air (PRERNA GAMBINO DO) Departure Communication (Admissions) The patient is hemodynamically stable. She is still has a good bit of pain on exam but is nonfocal on my exam. The radiologist is read her CT scan is negative. I thought that maybe I saw a little bit of inflammation of the appendix region. I spoke with Dr. Perez, general surgeon on-call. He agrees there may be a little bit of inflammation in this area. She does not have any focal tenderness in right lower abdomen and her pain is more diffuse. She is afebrile and nontoxic here. She has a slight leukocytosis. Given the equivocal findings we opted to go ahead and discharge her with p.o. antibiotics and she will see him in the clinic tomorrow afternoon. She is to maintain a clear liquid diet until then. She is given strict return precautions for any severe pain fevers or if her symptoms change in any way concerning to her. (PRERNA GAMBINO DO) Impression Primary Impression: Abdominal pain Qualified Codes: R10.84 - Generalized abdominal pain Disposition: HOME, SELF-CARE Condition: Stable Departure-Patient Inst. Referrals: NANCY PEREZ DAVID F MD (PCP/Family) Primary Care Physician Patient Instructions: Abdominal Pain, Adult ED Add. Discharge Instructions: You were seen in the emergency department today for abdominal pain. As discussed the radiology thinks that your CT scan is normal. I have reviewed this with our general surgeon who believes there may be a slight amount of inflammation in your appendix however it is definitely not certain. With that we have given you some antibiotics here. He wants you to see him in his clinic tomorrow afternoon. The number for his clinic has been provided for you. I recommend you call them in the morning to see what time they want you to come in. Maintain a clear liquid diet until you are seen by the surgeon. Return to the emergency department for any severe pain. Follow-up with your primary doctor for any nonemergent needs. All discharge instructions reviewed with patient and/or family. Voiced understanding. Scripts Levofloxacin (Levofloxacin) 500 Mg Tablet 500 MG PO DAILY for 7 Days, #7 TAB Prov: PRERNA GAMBINO DO 09/15/22 ANITA MUKHERJEE MD September 15, 2022 17:30 PRERNA GAMBINO DO September 15, 2022 19:43
[2022-09-15] MEDS ORDERED: NS IV 1000 ML 1,000 ML IV STA (17:36)
[2022-09-15] MEDS ORDERED: ONDANSETRON 4 MG/2 ML (SDV) Z0FRAN IVP ONE (17:45)
[2022-09-15] MEDS ORDERED: KETOROLAC 15 MG/ML VIAL IVP ONE (17:45)
[2022-09-15 17:57] LABS: BASOPHILS % (AUTO) 0 % (0-10); EOSINOPHILS % (AUTO) 0 % (0-10); HEMATOCRIT 39 % (35-52); HEMOGLOBIN 13.4 g/dL (11.5-16.0); LYMPHOCYTES # (AUTO) 0.9 10^3/uL (1.0-4.0); LYMPHOCYTES % (AUTO) 8 % (12-44); MEAN CORPUSCULAR HEMOGLOBIN 30 pg (25-34); MEAN CORPUSCULAR HGB CONC 34 g/dL (32-36); MEAN CORPUSCULAR VOLUME 88 fL (80-99); MEAN PLATELET VOLUME 10.7 fL (9.0-12.2); MONOCYTES # (AUTO) 0.3 10^3/uL (0.0-1.0); MONOCYTES % (AUTO) 3 % (0-12); NEUTROPHILS # (AUTO) 10.4 10^3/uL (1.8-7.8); NEUTROPHILS % (AUTO) 89 % (42-75); PLATELET COUNT 271 10^3/uL (130-400); WHITE BLOOD COUNT 11.6 10^3/uL (4.3-11.0)
[2022-09-15 17:59] LABS: BILIRUBIN,URINE NEGATIVE (NEGATIVE); CLARITY,URINE CLEAR; COLOR,URINE YELLOW; GLUCOSE, URINE (UA) NEGATIVE (NEGATIVE); KETONES,URINE TRACE (NEGATIVE); LEUKOCYTE ESTERASE ,URINE NEGATIVE (NEGATIVE); NITRITE,URINE NEGATIVE (NEGATIVE); PROTEIN,URINE 1+ (NEGATIVE)
[2022-09-15 18:02] LABS: ALBUMIN 4.7 GM/DL (3.2-4.5); CHLORIDE 107 MMOL/L (98-107); POTASSIUM 3.8 MMOL/L (3.6-5.0); SODIUM 138 MMOL/L (135-145)
[2022-09-15 18:03] LABS: CALCIUM 9.7 MG/DL (8.5-10.1)
[2022-09-15 18:05] LABS: GLUCOSE 107 MG/DL (70-105); TOTAL PROTEIN 7.6 GM/DL (6.4-8.2)
[2022-09-15 18:06] LABS: BILIRUBIN,TOTAL 0.3 MG/DL (0.1-1.0); CARBON DIOXIDE 18 MMOL/L (21-32)
[2022-09-15 18:08] LABS: ALKALINE PHOSPHATASE 84 U/L (40-136); CREATININE SERUM 0.69 MG/DL (0.60-1.30); GFR ESTIMATED 118
[2022-09-15 18:09] LABS: BUN/CREATININE RATIO 17
[2022-09-15 18:11] LABS: ALANINE AMINOTRANSFERASE 18 U/L (0-55)
[2022-09-15 18:14] LABS: BACTERIA,URINE NEGATIVE /HPF; RBC,URINE 25-50 /HPF; SQUAMOUS EPITHELIAL CELL,UR RARE /HPF
[2022-09-15 18:41] LABS: BAND NEUTROPHILS 0 %; BASOPHILS % (MANUAL) 0 %; EOSINOPHILS % (MANUAL) 0 %; LYMPHOCYTES % (MANUAL) 10 %; MONOCYTES % (MANUAL) 2 %; NEUTROPHILS % (MANUAL) 88 %; RBC MORPH NORMAL
[2022-09-15] MEDS ORDERED: IOHEXOL 350 MG/ML 100 ML (OMNIPAQUE 350) VIAL IV ONE (18:45)
[2022-09-15] MEDS ORDERED: NS 100 ML (IVPB) BAG IV ONE (18:45)
[2022-09-15] MEDS ORDERED: HOLD METFORMIN - RECEIVED CONTRAST 20 ML VIAL IV SCH (18:45)
--- NOTE | 2022-09-15 18:59 | Diagnostic Imaging Report ---
CLINICAL INDICATION: Patient with right lower abdominal pain since 0230 hours this morning. Patient has nausea, vomiting, and diarrhea. EXAM: CT exam of the abdomen and pelvis is performed without IV or oral contrast using stone protocol. Coronal and sagittal reformatted images were created. Auto Exposure Controls were utilized during the CT exam to meet ALARA standards for radiation dose reduction. COMPARISONS: None. FINDINGS: Visualized lung bases are clear. Bones show no significant abnormality. There is a 2.3 cm cyst involving the inferior aspect of the right lobe of liver which previously measured 2 cm. There is a 7 mm cyst involving the right lobe of liver near the dome. Liver is otherwise unremarkable. Gallbladder is surgically absent. The spleen, pancreas, and adrenal glands are unremarkable. Both kidneys are unremarkable with no hydronephrosis, stones, or mass. There is no intra-abdominal free air or free fluid. There are surgical clips just to the right and left sides of the uterus which may be related to tubal ligation. Uterus and adnexal structures show no significant abnormality. There are diverticula involving the proximal descending colon with no CT evidence of diverticulitis. The stomach and small bowel shows no significant abnormality. There is no evidence of intestinal obstruction. There are nonspecific air-fluid levels involving nondilated small bowel in the pelvis. The appendix is partially visualized and grossly unremarkable as visualized. Closely adjacent intestines partially obscure the appendix. There is no lymphadenopathy. The extra-abdominal and extrapelvic soft tissue structures are unremarkable. IMPRESSION: 1: There is no CT evidence of acute abdominal or pelvic process. The appendix is partially visualized and is unremarkable as visualized. Closely adjacent intestines partially obscure the appendix. 2: There is no evidence of intestinal obstruction, intra-abdominal free air or free fluid. 3: There are no urinary tract stones. The gallbladder is surgically absent. Dictated by: Dictated on workstation # [id number]
[2022-09-15] MEDS ORDERED: LEVO-55 PO (19:41)
[2022-09-15 19:52] VITALS: BP 123/92
== END 2022-09-15 19:53 | disposition home or self-care (01) ==
LOC: ER 17:17 → EDUNIT# 17:17 → ER 19:53
DX: R10.84 Generalized abdominal pain (principal); Z87.442 Personal history of urinary calculi; Z91.040 Latex allergy status; Z88.0 Allergy status to penicillin; Z28.310 Unvaccinated for COVID-19
CPT/HCPCS: 36415; 74177; 80053; 81000; 84703; 85007; 85027

== ENCOUNTER → 2022-09-16 | Outpatient (CLI) | payer MEDICAID ==
[~2022-09-16] MED LIST changes: +LEVO-55 PO
--- NOTE | 2022-09-16 14:57 | Diagnostic Imaging Report ---
PROCEDURE: Pelvic comp/transvaginal sonogram. TECHNIQUE: Complete transabdominal and transvaginal pelvic ultrasound was performed. In addition, limited pelvic Doppler was performed. INDICATION: Lower abdominal pain. FINDINGS: The uterus is anteverted measuring 6.6 x 3.4 x 5.2 cm. The endometrium is 8 mm in thickness. No myometrial mass is detected. There is a small cervical cyst. The right ovary measures 4.0 x 1.9 x 2.0 cm and the left ovary measures 2.3 x 1.4 x 1.4 cm. The right ovary contains a hemorrhagic cyst measuring approximately 2.4 x 2.3 x 1.7 cm. There is blood flow to both ovaries. There is no free fluid. IMPRESSION: 2.4 cm probable hemorrhagic cyst of the right ovary. The study is otherwise unremarkable. Dictated by: Dictated on workstation # [id number]
== END ==
LOC: RAD 13:38
PROVIDERS: ATTEND Surgery
DX: R10.30 Lower abdominal pain, unspecified (principal)
CPT/HCPCS: 76830; 76856

== ENCOUNTER 2022-09-23 12:20 | Outpatient (CLI) | payer MEDICAID ==
[~2022-09-23] VITALS: Ht 149.9 cm; Wt 50.5 kg
[2022-09-23 12:25] VITALS: BP 119/68
[2022-09-23] MEDS ORDERED: IOHEXOL 350 MG/ML 100 ML (OMNIPAQUE 350) VIAL IV ONE (12:45)
[2022-09-23] MEDS ORDERED: DIATRIZOATE MEGLUM/SODIUM 37% 120 ML (GASTROGRAFIN) PO ONE (12:45)
[2022-09-23] MEDS ORDERED: NS 100 ML (IVPB) BAG IV ONE (12:45)
[2022-09-23] MEDS ORDERED: HOLD METFORMIN - RECEIVED CONTRAST 20 ML VIAL IV SCH (12:45)
[2022-09-23] MEDS: morphine INJ 4 MG/ML 1 ML (VIAL/SYRINGE) IVP PRN ×3 (12:50→18:21)
--- NOTE | 2022-09-23 12:53 | History & Physical-OB/GYN ---
History of Present Illness History of Present Illness Reason for visit/HPI This 32yo presents with c/o increasing abdominal pain, N/V, fever and chills. She states that she has been having pain for over 1 week and over the last 24hrs her pain has increased in intensity. She states that her Temp at home was 101F and that she has been anorexic since last night @1930. She states that the pain in her abdomen has increased in frequency and intensity. She had a CT last week which was normal and an US that showed a 2.4 cm right ovarian hemorrhagic cyst. Date of Admission 09/23/22 Date Seen by a Provider: September 23, 2022 Time Seen by a Provider: 10:00 I consulted on this patient on 09/23/22 12:48 Attending Physician [place] Admitting Physician Admitting Physician: Attending Physician: Abeba Melendez DO Consult Allergies and Home Medications Allergies Coded Allergies: Penicillins (Verified Allergy, Intermediate, RASH, 02/16/19) Latex, Natural Rubber (Verified Allergy, Mild, HIVES, 09/27/19) adhesive (Verified Allergy, Mild, 02/16/19) medroxyprogesterone (Verified Allergy, Mild, N/V, 09/27/19) peanut (Unverified Allergy, Mild, HIVES, 02/16/19) FROM UNCODED ALLERGIES Patient Home Medication List Home Medication List Reviewed: Yes Albuterol Sulfate (Ventolin Hfa) 1 Puff Puff, 2 PUFF IH Q4H PRN for SHORTNESS OF BREATH, (Reported) Entered as Reported by: OLYA LEMUS on 02/16/19 1027 Last Action: Reviewed Hydrocodone/Acetaminophen (Hydrocodone/Acetaminophen 5 MG/325 MG TAB) 1 Each Tablet, 1 TAB PO Q6H Prescribed by: MARIAJOSE PARSON on 10/04/19 0851 Last Action: Held Levofloxacin (Levofloxacin) 500 Mg Tablet, 500 MG PO DAILY Prescribed by: PRERNA GAMBINO MD on 09/15/221940 Last Action: Held Past Mkmhhok-Mluxpe-Zpbtaa Hx Patient Social History Number of Children: 9 Smoking Status: Never a Smoker Former Smoker, Quit: Feb 17, 2012 2nd Hand Smoke Exposure: Yes Recent Hopitalizations: No Immunizations Up To Date Tetanus Booster (TDap): Unknown Pediatric: No Seasonal Allergies Seasonal Allergies: No Surgeries Yes (CYST REMOVAL LEFT BREAST/HAND, CTR BILAT) Breast, Gallbladder Respiratory Yes Asthma Cardiovascular No Neurological No Reproductive System : No Hx : 9 Hx Para: 5 Hx Reproductive Disorders: No Sexually Transmitted Disease: No HIV/AIDS: No Genitourinary No Gastrointestinal Yes (N/V, ABD PAIN) Gall Bladder Disease Musculoskeletal No Endocrine History of Endocrine Disorders: No HEENT History of HEENT Disorders: Yes (GLASSES) Cancer Yes Cervical Did You Recieve Any Treatments: No Type of Treatment: Surgical Intervention Psychosocial History of Psychiatric Problem: Yes Behavioral Health Disorders: Anxiety, Depression Integumentary History of Skin or Integumenta: No Blood Transfusions History of Blood Disorders: No Adverse Reaction to a Blood Tr: No (N/A) Family Medical History Family Hx: Family history: Diabetes mellitus 19 FATHER, Onset:40's - 50 Hearing loss 19 FATHER G8 BROTHER No Family History of: Abdominal aortic aneurysm [place]'s disease Alcoholism Aphasia Cancer Cancer of colon Cataract Chest pain Congenital heart disease Congestive heart failure Cystic fibrosis Dementia Dysphagia Family history: Allergy Family history: Alzheimer's disease Family history: Arthritis Family history: Asthma Family history: Breast disease Family history: Cardiovascular disease Family history: Coronary thrombosis Family history: Gastrointestinal disease Family history: Glaucoma Family history: Hypertension Family history: Osteoporosis Family history: Thyroid disorder Headache Heart disease Hereditary disease History of - anemia History of - disorder History of - respiratory disease History of drug abuse Human immunodeficiency virus (HIV) seropositivity Hypercholesterolemia Infertile Kidney disease Malignant neoplasm of lung Myocardial infarction Parkinson's disease Prostate cancer Psychotic disorder Seizure disorder Stroke Tuberculosis Visual impairment Review of Systems Constitutional: see HPI EENTM: see HPI Respiratory: see HPI Cardiovascular: see HPI Gastrointestinal: RLQ, see HPI, abdominal pain (RLQ) Genitourinary: see HPI Musculoskeletal: see HPI Skin: see HPI Psychiatric/Neurological: No Symptoms Reported, See HPI Physical Exam Physical Exam Vital Signs Vital Signs Date Time Temp Pulse Resp B/P (MAP) Pulse Ox O2 Delivery O2 Flow Rate FiO2 09/24/22 08:05 36.4 69 16 111/56 (74) 98 Room Air 09/24/22 08:05 98 Room Air 09/24/22 04:00 36.6 70 18 113/69 (84) 99 Room Air 09/24/22 00:00 36.0 82 16 104/58 (73) 98 Room Air 09/23/22 21:00 100 Room Air 09/23/22 20:00 36.8 73 15 107/51 (69) 100 Room Air 09/23/22 15:30 36.9 80 16 119/69 (86) 99 Room Air 09/23/22 12:25 36.9 76 16 119/68 (85) 98 Room Air 09/23/22 12:20 Room Air I & O 09/24/22 06:59 Intake Total 1200 ml Balance 1200 ml Capillary Refill : General Appearance: Anxious, Moderate Distress Respiratory: Chest Non Tender, Lungs Clear, Normal Breath Sounds, No Accessory Muscle Use, No Respiratory Distress Cardiovascular: Regular Rate, Rhythm Abdominal: guarding, rebound, tenderness, RLQ Gynecology/General: No urethral discharge, No lesions, No pelvic organ prolapse, No muscle tenderness Labia: WNL Vagina: WNL Cervix: WNL Cervix OS: closed Uterus: WNL Ovaries: Left, Tender Pelvic Exam: normal external exam, tender adnexa Extremity: Normal Capillary Refill, Normal Inspection Assessment/Plan Assessment and Plan Problems: (1) N&V (nausea and vomiting) Onset Date: ~ 09/22/2022 Status: Acute Qualifiers: Qualified Codes: R11.2 - Nausea with vomiting, unspecified Assessment & Plan: antiemetics prn (2) Abdominal pain Status: Acute Qualifiers: Qualified Codes: R10.31 - Right lower quadrant pain Assessment & Plan: CT abd pelvis with IV and rectal contrast IVF pain medication Admission Diagnosis Admission Status: Observation ABEBA MELENDEZ DO September 23, 2022 12:53
[2022-09-23] MEDS: D5 LR IV SOLUTION 1,000 ML IV SCH ×3 (13:36→23:35)
[2022-09-23] MEDS: ONDANSETRON 4 MG/2 ML (SDV) Z0FRAN IVP PRN ×2 (13:40→18:22)
--- NOTE | 2022-09-23 13:58 | Diagnostic Imaging Report ---
INDICATION: Abdominal pain and nausea and vomiting. TECHNIQUE: Multiple contiguous axial images were obtained through the abdomen and pelvis after administration of intravenous contrast. Auto Exposure Controls were utilized during the CT exam to meet ALARA standards for radiation dose reduction. All CT scans use one or more of the following dose optimizing techniques: automated exposure control, MA and/or KvP adjustment based on patient size and exam type or iterative reconstruction. Rectal contrast was also used. COMPARISON: Comparison made to 09/15/2022. FINDINGS: The visualized portions of the lung bases are clear. There were no pleural fluid collections. There is no free intraperitoneal air. The liver shows a small cyst in the right lobe superiorly which is unchanged. Gallbladder is surgically absent. There is a cyst in the right lobe of the liver inferiorly which is unchanged. The spleen, adrenals, and pancreas are normal. The kidneys bilaterally appear normal. There is no retroperitoneal mass or adenopathy. There is no ascites or abnormal fluid collection. Contrast is seen throughout the colon with prominent stool in the colon but no focal bowel wall thickening or obstruction. There is diffuse fluid-filled appearance of small bowel loops which may represent gastroenteritis. There is no overt bowel obstruction. IMPRESSION: Diffuse fluid-filled loops of small bowel are noted which may represent gastroenteritis. There is no evidence of colonic obstruction with rectal contrast given. There are small benign-appearing cysts in the liver. Patient has had prior cholecystectomy. Dictated by: Dictated on workstation # [id number]
--- NOTE | 2022-09-23 15:24 | Progress Note ---
Progress Note CT reviewed with Radiologist No appendicitis and hemorrhagic cyst is smaller compared to previous CT. Some small bowel wall thickening and some possible endometritis (pt was neg for GC & Chlamydia) Reviewed with pt and will proceed with IV ATBx (Levofloxin & Metronidazole) Pt states she is feeling hungry-will try clear liquid diet. Will advance as tolerated. NEETU JOHNS DO September 23, 2022 15:24
[2022-09-23 15:30] VITALS: BP 119/69
[2022-09-23] MEDS: KETOROLAC 15 MG/ML VIAL IVP PRN (16:25)
[2022-09-23] MEDS ORDERED: PROCHLORPERAZINE 10 MG/2ML INJ (COMPAZINE) IV PRN (16:45)
[2022-09-23 20:00] VITALS: BP 107/51
[2022-09-23] MEDS: metroNIDAZOLE 500MG/100ML IVPB 100 ML IV SCH (20:36)
[2022-09-24] VITALS: BP 104/58
[2022-09-24] MEDS: KETOROLAC 15 MG/ML VIAL IVP PRN ×2 (02:12→07:18)
[2022-09-24 04:00] VITALS: BP 113/69
[2022-09-24] MEDS: D5 LR IV SOLUTION 1,000 ML IV SCH (07:18)
[2022-09-24 08:05] VITALS: BP 111/56
[2022-09-24] MEDS: metroNIDAZOLE 500MG/100ML IVPB 100 ML IV SCH (08:12)
--- NOTE | 2022-09-24 08:40 | Progress Note ---
Standard Progress Note Progress Notes/Assess & Plan Date Seen by a Provider: September 24, 2022 Time Seen by a Provider: 08:30 Progress/Assessment & Plan Pt is feeling much better this am She has had no episodes of emesis through the night. No fever or chills VSS AF HRRR LCTAB ABD soft NT ND EXT intact x4 no c/c/e/e Final Diagnosis Abdominal pain Gastroenteritis Endometritis Focused Exam Sepsis Stage: Ruled Out Possible Source: Genitouriary Respiratory: Chest Non Tender, Lungs Clear, Normal Breath Sounds, No Accessory Muscle Use, No Respiratory Distress Cardiovascular: Regular Rate, Rhythm, No Edema Skin: normal color, warm/dry Diagnosis/Problems Diagnosis/Problems (1) N&V (nausea and vomiting) Onset Date: ~ 09/22/2022 Status: Acute Assessment & Plan: resolved Qualifiers: Qualified Codes: R11.2 - Nausea with vomiting, unspecified (2) Abdominal pain Status: Acute Assessment & Plan: resolved DC to home COntinue PO antibiotics f/u for annual exam Qualifiers: Qualified Codes: R10.31 - Right lower quadrant pain NEETU JOHNS DO September 24, 2022 08:40
[2022-09-24] MEDS ORDERED: METR-145 PO (08:43)
--- NOTE | 2022-09-24 08:48 | Short Stay Summary ---
Discharge Summary Hospital Course Was the Problem List Reviewed?: Yes Problems/Dx: (1) N&V (nausea and vomiting) Status: Acute Assessment & Plan: resolved Qualifiers: Qualified Codes: R11.2 - Nausea with vomiting, unspecified (2) Abdominal pain Status: Acute Assessment & Plan: resolved DC to home COntinue PO antibiotics f/u for annual exam Qualifiers: Qualified Codes: R10.31 - Right lower quadrant pain Final Diagnosis: gastroenteritis Hospital Course Date of Admission: Admission Diagnosis : Family Physician/Provider: [place] Date of Discharge: 09/24/22 Discharge Diagnosis: [ ] Hospital Course: [ ] Labs and Pending Lab Test: Home Meds Active Levofloxacin 500 Mg Tablet 500 Mg PO DAILY 7 Days Hydrocodone/Acetaminophen 5 MG/325 MG TAB (Hydrocodone/Acetaminophen) 1 Each Tablet 1 Tab PO Q6H MDD 10 TABS 7 Days Reported Ventolin Hfa (Albuterol Sulfate) 1 Puff Puff 2 Puff IH Q4H PRN 1 PUFF = 90 MCG Assessment/Pt Instructions gastroenteritis Endometritis Continue PO antibiotics Advance diet as tolerated f/u in office in 1 mo Discharge Instructions Discharge Diet: Other Diet (advance to BRAT diet then regular as tolerated. ) Discharge Physical Examination General Appearance: Alert, Oriented X3 Respiratory: Clear to Auscultation Cardiovascular: Regular Rate, Normal S1, Normal S2 Abdominal: Normal Bowel Sounds, Soft, No Tenderness Extremities: No Clubbing, No Cyanosis, No Edema Skin: No Rashes, No Breakdown, No Significant Lesion Neuro: Normal Gait, Normal Speech, Normal Tone Psych/Mental Status: Mental Status NL Allergies: Coded Allergies: Penicillins (Verified Allergy, Intermediate, RASH, 02/16/19) Latex, Natural Rubber (Verified Allergy, Mild, HIVES, 09/27/19) adhesive (Verified Allergy, Mild, 02/16/19) medroxyprogesterone (Verified Allergy, Mild, N/V, 09/27/19) peanut (Unverified Allergy, Mild, HIVES, 02/16/19) FROM UNCODED ALLERGIES Discharge Summary Date of Admission 09/23/22 Date of Discharge Discharge Date: September 24, 2022 Discharge Time: 11:00 Discharge Diagnosis gastroenteritis Endometritis (1) N&V (nausea and vomiting) Onset Date: ~ 09/22/2022 Status: Acute Assessment & Plan: resolved Qualifiers: Qualified Codes: R11.2 - Nausea with vomiting, unspecified (2) Abdominal pain Status: Acute Assessment & Plan: resolved DC to home COntinue PO antibiotics f/u for annual exam Qualifiers: Qualified Codes: R10.31 - Right lower quadrant pain (3) Acute endometritis Assessment & Plan: continue PO antibiotics (4) Gastroenteritis Assessment & Plan: continue po ATBx Clinical Quality Measures DVT/VTE Risk/Contraindication: VTE Addressed: Yes VTE Present on Admission: No RFS Level Per Nursing on Admit: 1=Low/No VTE PPX NEETU JOHNS DO September 24, 2022 08:48
== END 2022-09-24 09:45 | disposition home or self-care (01) ==
LOC: WSo 12:20 → WS 12:20 → WSo 09-24 09:45
PROVIDERS: ATTEND Obstetrics & Gynecology
DX: O99.891 Other specified diseases and conditions complicating pregnancy (principal); R10.31 Right lower quadrant pain; R11.2 Nausea with vomiting, unspecified; Z3A.00 Weeks of gestation of pregnancy not specified
CPT/HCPCS: 36415; 74177; 86850; 86900; 86901; G0378

== ENCOUNTER 2022-09-25 15:01 | Emergency (ER) | payer MEDICAID ==
[~2022-09-25] VITALS: Ht 149 cm; Wt 48.5 kg
[~2022-09-25 15:01] MED LIST changes: +METR-145 PO
[2022-09-25 15:33] LABS: BILIRUBIN,URINE NEGATIVE (NEGATIVE); CLARITY,URINE CLEAR; COLOR,URINE YELLOW; GLUCOSE, URINE (UA) NEGATIVE (NEGATIVE); KETONES,URINE NEGATIVE (NEGATIVE); LEUKOCYTE ESTERASE ,URINE NEGATIVE (NEGATIVE); NITRITE,URINE NEGATIVE (NEGATIVE); PH,URINE 7.5 (5-9); PROTEIN,URINE NEGATIVE (NEGATIVE)
--- NOTE | 2022-09-25 15:39 | ED GU-Female ---
General Chief Complaint: - Reproductive Stated Complaint: VAG BLEEDING Nursing Triage Note: PT AMB TO TRIAGE, PT CO OF ABD VAGINAL BLEEDING AND LOWER ABD PAIN. PT STATES HAS HX OF OVARIAN CYST. PT WAS SENT TO ED BY DR MELENDEZ. PT STATES WAS RELEASED FROM HOSPITAL YESTERDAY Source: patient Exam Limitations: no limitations History of Present Illness Date Seen by Provider: September 25, 2022 Time Seen by Provider: 15:20 Initial Comments 32-year-old female presents the ED with complaints of vaginal bleeding starting yesterday evening. She states she has been completely saturating 3-4 pads an hour since the bleeding started yesterday evening. She also complains of bilateral lower abdominal pain for the last 1/2 to 2 weeks. She also reports she has been vomiting multiple times a day for the last 2 weeks. States she is unable to keep anything down including water. She was recently admitted, discharged yesterday, for hemorrhagic ovarian cysts. She called her wing coverer, Dr. Melendez, today because she has continued to have pain and started having vaginal bleeding. They told her to come to the ER. She is G9, P5. She has had a tubal ligation. She denies fevers, states she did have a fever when she was admitted. She reports some dizziness. Denies any vaginal discharge. Last normal menstrual cycle was the last week of August/first week of September. Allergies and Home Medications Allergies Coded Allergies: Penicillins (Verified Allergy, Intermediate, RASH, 02/16/19) Latex, Natural Rubber (Verified Allergy, Mild, HIVES, 09/27/19) adhesive (Verified Allergy, Mild, 02/16/19) medroxyprogesterone (Verified Allergy, Mild, N/V, 09/27/19) peanut (Unverified Allergy, Mild, HIVES, 02/16/19) FROM UNCODED ALLERGIES Patient Home Medication List Home Medication List Reviewed: Yes Albuterol Sulfate (Ventolin Hfa) 1 Puff Puff, 2 PUFF IH Q4H PRN for SHORTNESS OF BREATH, (Reported) Entered as Reported by: OLYA LEMUS on 02/16/19 1027 Levofloxacin (Levofloxacin) 500 Mg Tablet, 500 MG PO DAILY Prescribed by: PRERNA GAMBINO MD on 09/15/22 194 Metronidazole (Metronidazole) 500 Mg Tablet, 500 MG PO BID Prescribed by: Abeba Melendez on 09/24/22 0843 Discontinued Medications Hydrocodone/Acetaminophen (Hydrocodone/Acetaminophen 5 MG/325 MG TAB) 1 Each Tablet, 1 TAB PO Q6H Prescribed by: MARIAJOSE PARSON on 10/04/19 0851 Review of Systems Review of Systems Constitutional: see HPI Past Jovnhop-Mnsrmr-Krlykz Hx Patient Social History Tobacco Use?: No Substance use?: Yes Substance type: Marijuana Substance frequency: Several times a month Alcohol Use?: No Pt feels they are or have been: No Immunizations Up To Date Tetanus Booster (TDap): Unknown PED Vaccines UTD: No Seasonal Allergies Seasonal Allergies: No Past Medical History Surgery/Hospitalization HX: GALLBLADDER, TUBAL Surgeries: Yes (CYST REMOVAL LEFT BREAST/HAND, CTR BILAT) Breast, Gallbladder Respiratory: Yes Asthma Cardiac: No Neurological: No Reproductive Disorders: No Sexually Transmitted Disease: No HIV/AIDS: No Genitourinary: No Gastrointestinal: Yes (N/V, ABD PAIN) Gall Bladder Disease Musculoskeletal: No Endocrine: No HEENT: Yes (GLASSES) Cancer: Yes Cervical Did You Recieve Any Treatments: No What Type of Treatment Did You: Surgical Intervention Psychosocial: Yes Anxiety, Depression Integumentary: No Blood Disorders: No Adverse Reaction/Blood Tranf: No (N/A) Family Medical History Family history: Diabetes mellitus 19 FATHER, Onset:40's - 50 Hearing loss 19 FATHER G8 BROTHER No Family History of: Abdominal aortic aneurysm [place]'s disease Alcoholism Aphasia Cancer Cancer of colon Cataract Chest pain Congenital heart disease Congestive heart failure Cystic fibrosis Dementia Dysphagia Family history: Allergy Family history: Alzheimer's disease Family history: Arthritis Family history: Asthma Family history: Breast disease Family history: Cardiovascular disease Family history: Coronary thrombosis Family history: Gastrointestinal disease Family history: Glaucoma Family history: Hypertension Family history: Osteoporosis Family history: Thyroid disorder Headache Heart disease Hereditary disease History of - anemia History of - disorder History of - respiratory disease History of drug abuse Human immunodeficiency virus (HIV) seropositivity Hypercholesterolemia Infertile Kidney disease Malignant neoplasm of lung Myocardial infarction Parkinson's disease Prostate cancer Psychotic disorder Seizure disorder Stroke Tuberculosis Visual impairment Physical Exam Vital Signs Vital Signs - First Documented 09/25/22 15:08 Temp 37.0 Pulse 79 Resp 20 B/P (MAP) 122/80 (94) Pulse Ox 98 Capillary Refill : Less Than 3 Seconds Height, Weight, BMI Height: 5'0.00" Weight: 162lbs. 2.0oz. [id number]; 21.00 BMI Method:Stated General Appearance: WD/WN, moderate distress Neck: supple, normal inspection Cardiovascular: regular rate, rhythm Respiratory: lungs clear, normal breath sounds, no respiratory distress, no accessory muscle use Gastrointestinal: guarding, tenderness Pelvic: normal external exam, normal adnexa; No discharge; vaginal bleeding Extremities: normal range of motion, normal inspection Neurologic/Psychiatric: alert, normal mood/affect Skin: normal color, warm/dry Progress/Results/Core Measures Suspected Sepsis SIRS Temperature: Pulse: 79 Respiratory Rate: 20 Laboratory Tests 09/25/22 15:45: White Blood Count 12.2H Blood Pressure 122 /80 Mean: 94 Laboratory Tests 09/25/22 15:45: Creatinine 0.70, Platelet Count 307, Total Bilirubin 0.4 Results/Orders Lab Results Laboratory Tests Test 09/25/22 15:24 09/25/22 15:45 09/25/22 17:13 Range/Units Urine Color YELLOW Urine Clarity CLEAR Urine pH 7.5 5-9 Urine Specific [place] 1.010 L 1.016-1.022 Urine Protein NEGATIVE NEGATIVE Urine Glucose (UA) NEGATIVE NEGATIVE Urine Ketones NEGATIVE NEGATIVE Urine Nitrite NEGATIVE NEGATIVE Urine Bilirubin NEGATIVE NEGATIVE Urine Urobilinogen 1.0 < = 1.0 MG/DL Urine Leukocyte Esterase NEGATIVE NEGATIVE Urine RBC (Auto) 3+ H NEGATIVE Urine RBC 25-50 H /HPF Urine WBC NONE /HPF Urine Squamous Epithelial Cells 0-2 /HPF Urine Crystals PRESENT H /LPF Urine Amorphous Sediment LARGE MAXX PHOSPHATE H /LPF Urine Bacteria NEGATIVE /HPF Urine Casts NONE /LPF Urine Mucus NEGATIVE /LPF Urine Culture Indicated NO White Blood Count 12.2 H 4.3-11.0 10^3/uL Red Blood Count 4.02 3.80-5.11 10^6/uL Hemoglobin 12.1 11.5-16.0 g/dL Hematocrit 36 35-52 % Mean Corpuscular Volume 90 80-99 fL Mean Corpuscular Hemoglobin 30 25-34 pg Mean Corpuscular Hemoglobin Concent 34 32-36 g/dL Red Cell Distribution Width 13.0 10.0-14.5 % Platelet Count 307 130-400 10^3/uL Mean Platelet Volume 10.4 9.0-12.2 fL Immature Granulocyte % (Auto) 0 % Neutrophils (%) (Auto) 70 42-75 % Lymphocytes (%) (Auto) 24 12-44 % Monocytes (%) (Auto) 5 0-12 % Eosinophils (%) (Auto) 1 0-10 % Basophils (%) (Auto) 0 0-10 % Neutrophils # (Auto) 8.6 H 1.8-7.8 10^3/uL Lymphocytes # (Auto) 2.9 1.0-4.0 10^3/uL Monocytes # (Auto) 0.6 0.0-1.0 10^3/uL Eosinophils # (Auto) 0.1 0.0-0.3 10^3/uL Basophils # (Auto) 0.0 0.0-0.1 10^3/uL Immature Granulocyte # (Auto) 0.0 0.0-0.1 10^3/uL Sodium Level 139 135-145 MMOL/L Potassium Level 4.0 3.6-5.0 MMOL/L Chloride Level 107 98-107 MMOL/L Carbon Dioxide Level 23 21-32 MMOL/L Anion Gap 9 5-14 MMOL/L Blood Urea Nitrogen 11 7-18 MG/DL Creatinine 0.70 0.60-1.30 MG/DL Estimat Glomerular Filtration Rate 118 BUN/Creatinine Ratio 16 Glucose Level 93 70-105 MG/DL Calcium Level 9.1 8.5-10.1 MG/DL Corrected Calcium 8.9 8.5-10.1 MG/DL Total Bilirubin 0.4 0.1-1.0 MG/DL Aspartate Amino Transf (AST/SGOT) 18 5-34 U/L Alanine Aminotransferase (ALT/SGPT) 16 0-55 U/L Alkaline Phosphatase 63 40-136 U/L C-Reactive Protein High Sensitivity 0.11 0.00-0.50 MG/DL Total Protein 6.6 6.4-8.2 GM/DL Albumin 4.2 3.2-4.5 GM/DL Micro Results Microbiology 09/25/22 Wet Prep - Final, Complete My Orders Orders - ARTIE CURTIS APRN Ua Culture If Indicated (09/25/22 15:19) Urine Bedside (09/25/22 15:19) Cbc With Automated Diff (09/25/22 15:32) Comprehensive Metabolic Panel (09/25/22 15:32) Us Non Ob Pelvis Comp/Transvag (09/25/22 15:32) Ed Iv/Invasive Line Start (09/25/22 15:32) Fentanyl Inj (Sublimaze Injection) (09/25/22 15:45) Hs C Reactive Protein (09/25/22 16:16) Wet Prep (09/25/22 16:47) Neisseria Gonorrhea Swab (09/25/22 16:47) Chlamydia Trachomatis Swab (09/25/22 16:47) Medications Given in ED Vital Signs/I&O Capillary Refill : Less Than 3 Seconds Blood Pressure Mean: 94 Progress Note : Progress Note Patient seen evaluated, sitting on bed, moderate distress. Based on exam and symptoms, work-up initiated including CBC, CMP, pelvic ultrasound. Fentanyl ordered for pain. Labs reviewed. CBC shows slightly elevated WBC 12.2, neutrophil number slightly elevated 8.6, hemoglobin and hematocrit normal. CMP grossly normal. CRP normal. UA shows 3+ RBCs, negative for infection. Few clue cells noted on wet prep. Patient has already been prescribed Flagyl by Dr. Melendez. Results discussed with patient. Discharge instructions and return precautions provided. Departure Impression Primary Impression: Abdominal pain Additional Impression: Vaginal bleeding Disposition: HOME, SELF-CARE Condition: Stable Departure-Patient Inst. Decision time for Depature: 17:43 Referrals: [facility] [place] (PCP/Family) Primary Care Physician Patient Instructions: IRREGULAR VAGINAL BLEEDING Add. Discharge Instructions: Take 800 mg of ibuprofen every 8 hours with food and continue for 24 hours after the bleeding stops. Follow-up with Dr. Melendez, call her on Wednesday to schedule follow-up ap pointment. Return for severe pain, if you continue to saturate multiple pads every hour for several hours, passing out, or any other new, concerning, or worsening symptoms. All discharge instructions reviewed with patient and/or family. Voiced understanding. Work/School Note: Work Release Form Date Seen in the Emergency Department: September 25, 2022 Return to Work: September 26, 2022 Restrictions: No Restrictions ARTIE CURTIS APRN September 25, 2022 15:39
[2022-09-25 15:41] LABS: AMORPHOUS SEDIMENT,UR LARGE AMOR PHOSPHATE /LPF; BACTERIA,URINE NEGATIVE /HPF; RBC,URINE 25-50 /HPF; SQUAMOUS EPITHELIAL CELL,UR 0-2 /HPF
[2022-09-25] MEDS ORDERED: fentaNYL INJ 100 MCG/2 ML AMP IVP ONE (15:45)
[2022-09-25 16:03] LABS: BASOPHILS % (AUTO) 0 % (0-10); EOSINOPHILS # (AUTO) 0.1 10^3/uL (0.0-0.3); EOSINOPHILS % (AUTO) 1 % (0-10); HEMATOCRIT 36 % (35-52); HEMOGLOBIN 12.1 g/dL (11.5-16.0); LYMPHOCYTES # (AUTO) 2.9 10^3/uL (1.0-4.0); LYMPHOCYTES % (AUTO) 24 % (12-44); MEAN CORPUSCULAR HEMOGLOBIN 30 pg (25-34); MEAN CORPUSCULAR HGB CONC 34 g/dL (32-36); MEAN CORPUSCULAR VOLUME 90 fL (80-99); MEAN PLATELET VOLUME 10.4 fL (9.0-12.2); MONOCYTES # (AUTO) 0.6 10^3/uL (0.0-1.0); MONOCYTES % (AUTO) 5 % (0-12); NEUTROPHILS # (AUTO) 8.6 10^3/uL (1.8-7.8); NEUTROPHILS % (AUTO) 70 % (42-75); PLATELET COUNT 307 10^3/uL (130-400); WHITE BLOOD COUNT 12.2 10^3/uL (4.3-11.0)
[2022-09-25 16:09] LABS: ALBUMIN 4.2 GM/DL (3.2-4.5)
[2022-09-25 16:11] LABS: CALCIUM 9.1 MG/DL (8.5-10.1)
[2022-09-25 16:12] LABS: TOTAL PROTEIN 6.6 GM/DL (6.4-8.2)
[2022-09-25 16:14] LABS: BILIRUBIN,TOTAL 0.4 MG/DL (0.1-1.0)
[2022-09-25 16:15] LABS: CREATININE SERUM 0.7 MG/DL (0.60-1.30)
--- NOTE | 2022-09-25 17:06 | Diagnostic Imaging Report ---
EXAMINATION: Non-OB sonogram, 09/25/2022. TECHNIQUE: Multiple real-time grayscale images were obtained of the pelvis in various projections endovaginally. Transabdominal imaging was also performed. INDICATION: Vaginal bleeding. History of ovarian cyst. COMPARISON: 09/16/2022. FINDINGS: Uterus measures 8.3 x 4.3 x 4.6 cm. Endometrium is thickened measuring 1.3 cm. This was previously 8 mm and could be due to timing of menstrual cycle. Correlate clinically. Right ovary measures 3.3 cm in greatest dimension. Previously noted heterogeneous cystic area is no longer visualized. Small follicles seen bilaterally with normal vascularity to both ovaries. There is no free fluid. Large cystic area in the cervix is likely a nabothian cyst. IMPRESSION: 1. Previously noted heterogeneous cystic lesion in the right ovary has resolved. 2. Interval development of thickened appearance to the endometrium, presumably due to timing in menstrual cycle. Correlate clinically. Dictated by: Dictated on workstation # [id number]
[2022-09-25 18:03] VITALS: BP 120/65
== END 2022-09-25 18:03 | disposition home or self-care (01) ==
LOC: EDUNIT# 15:01 → ER 15:03
DX: N93.9 Abnormal uterine and vaginal bleeding, unspecified (principal); R10.31 Right lower quadrant pain; R10.32 Left lower quadrant pain; Z87.42 Personal history of other diseases of the female genital tract
CPT/HCPCS: 36415; 76830; 76856; 80053; 81000; 84703; 85025; 86141; 87210; 87491; 87591